=== PATIENT | female | born 1955 | race African-American/Black ===

== ENCOUNTER 2016-04-08 09:46 | Inpatient (IN) | payer MEDICARE, OTHER ==
[2016-04-08] VITALS (7 sets, daily range): BP systolic 116–157; BP diastolic 58–78
[~2016-04-08] VITALS: Ht 170 cm; Wt 103.0 kg
[~2016-04-08 09:46] MED LIST: ACTOS15 MG PO; ADVAIR 500/501 E1 INH; ASPIRIN81 M1 PO; BACTRIM DS 8001 TA1 PO; CLARITIN10 MG PO; COMBIVENT RESPIM4 GM INH; COMBIVENT1 ARO IH; Cimetidine300 MG PO; DELTASONE10 MG; DELTASONE10 MG PO; DOXYCYCLINE MO100 MG PO; GEODON20 MG PO; GEODON40 MG PO; GEODON60 MG PO; GLUCOPHAGE850 MG PO; IBUPROFEN600 MG PO; K-DUR 20MEQ20 MEQ PO; K-TAB20 MEQ PO; KOMBIGLYZE PO; LASIX40 MG PO; LEVAQUIN PO; LEVAQUIN500 M1 PO; LEXAPRO10 MG PO; LEXAPRO20 MG PO; MEDROL DOSEPAK4 MG PO; METFORMIN ER500 MG PO; METFORMIN500 MG PO; MOTRIN800 MG PO; MUCINEX DM 30/61 TAB PO; NEXIUM40 MG PO; ONGLYZA5 MG PO; OSCAL/D,OYSTER250 MG PO; OYSTER CALCIUM1 TA1 PO; PHENERGAN W/ DE30 ML PO; POLYTRIM 1000010 ML OPH; PREDNICOT10 MG PO; PREDNISONE20 M1 PO; PROAIR HFA0.09 MG/AC INH; PROCARDIA XL30 MG PO; PROCARDIA XL60 MG PO; SINGULAIR10 MG PO; TOPROL XL50 M1 PO; TOPROL XL50 MG PO; ULTRAM50 MG PO; VIBRAMYCIN100 MG PO; VITAMIN D50000 I2 PO; VITAMIN D50000 I3 PO; XANAX0.5 MG PO; ZITHROMAX250 MG PO
[2016-04-08] MEDS ORDERED: AMOXICILLIN500 M2 PO (09:57)
[2016-04-08 10:21] LABS: BASO % 0.5 % (0.0-1.0); EOS # 0.1 10*3/uL (0.0-0.4); EOS % 1.4 % (1.0-4.0); HEMATOCRIT 39.9 % (37.0-47.0); HEMOGLOBIN 13.3 g/dl (12.0-16.0); LYMPH # 1.7 10*3/uL (1.3-4.4); LYMPH % 24.9 % (27.0-41.0); MEAN CELL VOLUME 87.3 fl (81.0-99.0); MEAN CORPUSCULAR HGB 29.1 pg (27.0-31.0); MEAN CORPUSCULAR HGB CONC 33.3 g/dl (33.0-37.0); MEAN PLATELET VOLUME 10.4 fl (9.6-12.3); MONO # 0.4 10*3/uL (0.1-1.0); NEUT # 4.5 10*3/uL (2.3-7.9); PLATELET COUNT AUTOMATED 277 10*3/uL (130-400); RED BLOOD COUNT 4.57 10*6/uL (4.10-5.10); RED CELL DISTRI WIDTH 14.7 % (0-14.5); WHITE BLOOD COUNT 6.7 10*3/uL (4.8-10.8)
[2016-04-08 10:27] LABS: INTERNATIONAL NORM RATIO 0.9 (2.0-3.5); PROTHROMBIN TIME 9.8 SECONDS (9.0-12.4)
[2016-04-08 10:38] LABS: ALBUMIN 3.4 gm/dl (3.1-4.5); ALKALINE PHOSPHATASE 84 U/L (45-117); BILIRUBIN, TOTAL 0.6 mg/dl (0.2-1.0); BUN 9 mg/dl (7-24); CARBON DIOXIDE 24 mmol/L (21-32); CHLORIDE 110 mmol/L (98-107); EST GLOM FILT AFRICAN AMERICAN > 60 ml/min; GLUCOSE 177 mg/dL (65-99); MAGNESIUM 1.9 mg/dL (1.5-2.1); POTASSIUM 3.9 mmol/L (3.5-5.1); SGOT/AST 13 IU/L (3-35); SGPT/ALT 26 U/L (12-78); SODIUM 144 mmol/L (136-145); TOTAL PROTEIN 6.9 gm/dL (6.4-8.2)
[2016-04-08 10:45] LABS: TROPONIN I < 0.015 ng/ml (<0.5)
[2016-04-08] MEDS ORDERED: CHERATUSSIN AC480 ML PO (13:03)
[2016-04-08] MEDS ORDERED: IBU800 M1 PO (13:04)
[2016-04-08] MEDS ORDERED: KOMBIGLYZE PO (13:05)
[2016-04-08] MEDS ORDERED: RANITIDINE HYD300 MG PO (13:06)
[2016-04-08 16:48] LABS: CPK 41 U/L (26-192)
[2016-04-08 16:54] LABS: CKMB < 0.5 ng/ml (0.5-3.6); TROPONIN I < 0.015 ng/ml (<0.5)
[2016-04-08 22:25] LABS: CPK 51 U/L (26-192)
[2016-04-08 22:28] LABS: CKMB < 0.5 ng/ml (0.5-3.6); TROPONIN I < 0.015 ng/ml (<0.5)
[2016-04-09] VITALS: BP 123/61
[2016-04-09 06:10] LABS: BASO % 0.2 % (0.0-1.0); HEMATOCRIT 37.7 % (37.0-47.0); HEMOGLOBIN 12.5 g/dl (12.0-16.0); LYMPH % 10.9 % (27.0-41.0); MEAN CELL VOLUME 86.9 fl (81.0-99.0); MEAN CORPUSCULAR HGB 28.8 pg (27.0-31.0); MEAN CORPUSCULAR HGB CONC 33.2 g/dl (33.0-37.0); MEAN PLATELET VOLUME 10.5 fl (9.6-12.3); MONO # 0.7 10*3/uL (0.1-1.0); MONO % 7.2 % (3.0-9.0); NEUT # 7.8 10*3/uL (2.3-7.9); NEUT % 81.4 % (47.0-73.0); PLATELET COUNT AUTOMATED 271 10*3/uL (130-400); RED BLOOD COUNT 4.34 10*6/uL (4.10-5.10); RED CELL DISTRI WIDTH 14.6 % (0-14.5); WHITE BLOOD COUNT 9.5 10*3/uL (4.8-10.8)
[2016-04-09 06:33] LABS: BUN 16 mg/dl (7-24); CARBON DIOXIDE 24 mmol/L (21-32); CHLORIDE 107 mmol/L (98-107); CHOLESTEROL 159 mg/dL (<200); EST GLOM FILT AFRICAN AMERICAN > 60 ml/min; FREE T4 0.95 ng/dl (0.76-1.46); GLUCOSE 209 mg/dL (65-99); HDL CHOLESTEROL 57 mg/dl (40-60); LDL CHOLESTEROL 88 mg/dL (9-159); POTASSIUM 4.2 mmol/L (3.5-5.1); SODIUM 143 mmol/L (136-145); TRIGLYCERIDES 72 mg/dl (<150); VLDL CHOLESTEROL 14 mg/dL (6-40)
[2016-04-09 06:47] LABS: INTERNATIONAL NORM RATIO 0.9 (2.0-3.5)
[2016-04-09 07:11] LABS: HEMOGLOBIN A1c 6.9 % (4.8-5.6)
[2016-04-09 08:00] VITALS: BP 138/80
[2016-04-09 08:41] LABS: FOLIC ACID 6.46 ng/mL (>5.38)
[2016-04-09 12:00] VITALS: BP 132/54
== END 2016-04-09 14:50 | disposition home or self-care (01) | DRG 880 ==
LOC: ED 09:46 → EDHOLD 12:06 → 4E 12:06
PROVIDERS: Internal Medicine; Student in an Organized Health Care Education/Training Program
DX: F41.9 Anxiety disorder, unspecified (principal); I11.0 Hypertensive heart disease with heart failure; I50.32 Chronic diastolic (congestive) heart failure; E11.65 Type 2 diabetes mellitus with hyperglycemia; F32.9 Major depressive disorder, single episode, unspecified; J42 Unspecified chronic bronchitis; I25.10 Atherosclerotic heart disease of native coronary artery without angina pectoris; F07.81 Postconcussional syndrome; Z86.73 Personal history of transient ischemic attack (TIA), and cerebral infarction without residual deficits; Z90.49 Acquired absence of other specified parts of digestive tract; Z98.890 Other specified postprocedural states; Z82.49 Family history of ischemic heart disease and other diseases of the circulatory system; Z82.3 Family history of stroke; Z88.8 Allergy status to other drugs, medicaments and biological substances; Z79.82 Long term (current) use of aspirin; Z79.899 Other long term (current) drug therapy

== ENCOUNTER 2016-06-26 02:38 | Emergency (ER) | payer MEDICARE, OTHER ==
[~2016-06-26] VITALS: Ht 170.1 cm; Wt 101.2 kg
[~2016-06-26 02:38] MED LIST changes: +AMOXICILLIN500 M2 PO; +CHERATUSSIN AC480 ML PO; +IBU800 M1 PO; +RANITIDINE HYD300 MG PO
[2016-06-26 02:42] VITALS: BP 163/73
[2016-06-26] MEDS ORDERED: SPIRIVA -- 3018 MCG INH (02:47)
[2016-06-26] MEDS ORDERED: IMITREX50 MG PO (02:50)
[2016-06-26 03:35] LABS: BASO % 0.5 % (0.0-1.0); EOS # 0.2 10*3/uL (0.0-0.4); EOS % 2.3 % (1.0-4.0); HEMATOCRIT 38.3 % (37.0-47.0); LYMPH # 2.3 10*3/uL (1.3-4.4); LYMPH % 29.5 % (27.0-41.0); MEAN CELL VOLUME 83.4 fl (81.0-99.0); MEAN CORPUSCULAR HGB 28.3 pg (27.0-31.0); MEAN CORPUSCULAR HGB CONC 33.9 g/dl (33.0-37.0); MONO # 0.6 10*3/uL (0.1-1.0); MONO % 8.1 % (3.0-9.0); NEUT # 4.6 10*3/uL (2.3-7.9); NEUT % 59.2 % (47.0-73.0); PLATELET COUNT AUTOMATED 275 10*3/uL (130-400); RED BLOOD COUNT 4.59 10*6/uL (4.10-5.10); RED CELL DISTRI WIDTH 15.3 % (0-14.5); WHITE BLOOD COUNT 7.7 10*3/uL (4.8-10.8)
[2016-06-26 03:46] LABS: BUN 13 mg/dl (7-24); C-REACTIVE PROTEIN 1.31 MG/DL (0-0.3); CARBON DIOXIDE 27 mmol/L (21-32); CHLORIDE 108 mmol/L (98-107); EST GLOM FILT AFRICAN AMERICAN > 60 ml/min; GLUCOSE 135 mg/dL (65-99); POTASSIUM 3.5 mmol/L (3.5-5.1); SODIUM 142 mmol/L (136-145)
[2016-06-26] MEDS ORDERED: ZOFRAN ODT4 MG SL (04:15)
[2016-06-26] MEDS ORDERED: ULTRAM50 MG PO (04:15)
== END 2016-06-26 07:00 | disposition home or self-care (01) ==
LOC: ED 02:38
PROVIDERS: Emergency Medicine Emergency Medical Services
DX: G43.909 Migraine, unspecified, not intractable, without status migrainosus (principal); I25.10 Atherosclerotic heart disease of native coronary artery without angina pectoris; J44.9 Chronic obstructive pulmonary disease, unspecified; I10 Essential (primary) hypertension; E11.9 Type 2 diabetes mellitus without complications; F32.9 Major depressive disorder, single episode, unspecified; I99.8 Other disorder of circulatory system; Z86.73 Personal history of transient ischemic attack (TIA), and cerebral infarction without residual deficits; Z79.82 Long term (current) use of aspirin; Z88.8 Allergy status to other drugs, medicaments and biological substances; Z79.899 Other long term (current) drug therapy

== ENCOUNTER 2016-07-26 15:56 | Inpatient (IN) | payer MEDICARE, OTHER ==
[~2016-07-26] VITALS: Ht 170.2 cm; Wt 101.6 kg
--- NOTE | ~2016-07-26 | EKG ---
[place], [place] ELECTROCARDIOGRAM REPORT NAME: LEANDRO TITUS UNIT #: [id number] ROOM: 405 DOCTOR: JANETT SAHA MD BIRTHDATE: [birth year] DOS: 07/26/2016 TIME: 1630. FINDINGS: Sinus rhythm at rate of 64. Nonspecific T wave flattening. Abnormal electrocardiogram. JANETT SAHA MD CM:EKGRPT:ELECTROCARDIOGRAM REPORT [id number] JANETT SAHA MD
[~2016-07-26 15:56] MED LIST changes: +IMITREX50 MG PO; +SPIRIVA -- 3018 MCG INH; +ZOFRAN ODT4 MG SL
[2016-07-26 16:19] VITALS: BP 140/64
[2016-07-26] MEDS ORDERED: PROPRANOLOL HYD80 MG PO (16:26)
[2016-07-26 16:39] LABS: BASO % 0.5 % (0.0-1.0); EOS # 0.1 10*3/uL (0.0-0.4); HEMATOCRIT 40.2 % (37.0-47.0); HEMOGLOBIN 13.4 g/dl (12.0-16.0); LYMPH # 1.6 10*3/uL (1.3-4.4); LYMPH % 25.6 % (27.0-41.0); MEAN CELL VOLUME 84.5 fl (81.0-99.0); MEAN CORPUSCULAR HGB 28.2 pg (27.0-31.0); MEAN CORPUSCULAR HGB CONC 33.3 g/dl (33.0-37.0); MEAN PLATELET VOLUME 10.7 fl (9.6-12.3); MONO # 0.4 10*3/uL (0.1-1.0); MONO % 6.4 % (3.0-9.0); NEUT # 4.2 10*3/uL (2.3-7.9); NEUT % 65.2 % (47.0-73.0); PLATELET COUNT AUTOMATED 284 10*3/uL (130-400); RED BLOOD COUNT 4.76 10*6/uL (4.10-5.10); RED CELL DISTRI WIDTH 15.8 % (0-14.5); WHITE BLOOD COUNT 6.4 10*3/uL (4.8-10.8)
[2016-07-26 16:50] LABS: INTERNATIONAL NORM RATIO 0.9 (2.0-3.5); PROTHROMBIN TIME 9.9 SECONDS (9.0-12.4)
[2016-07-26 16:55] LABS: ALBUMIN 3.3 gm/dl (3.1-4.5); ALKALINE PHOSPHATASE 89 U/L (45-117); BUN 6 mg/dl (7-24); CARBON DIOXIDE 27 mmol/L (21-32); CHLORIDE 109 mmol/L (98-107); EST GLOM FILT AFRICAN AMERICAN > 60 ml/min; GLUCOSE 148 mg/dL (65-99); MAGNESIUM 2.1 mg/dL (1.5-2.1); POTASSIUM 3.6 mmol/L (3.5-5.1); SGOT/AST 17 IU/L (3-35); SGPT/ALT 19 U/L (12-78); SODIUM 145 mmol/L (136-145); TOTAL PROTEIN 6.9 gm/dL (6.4-8.2)
[2016-07-26 16:57] LABS: TROPONIN I < 0.015 ng/ml (<0.045)
[2016-07-26 19:26] VITALS: BP 124/59
[2016-07-26 19:43] VITALS: BP 125/76
[2016-07-26 20:00] VITALS: BP 125/76
[2016-07-27] VITALS: BP 104/50
[2016-07-27 00:48] LABS: CPK 43 U/L (26-192)
[2016-07-27 00:49] LABS: CKMB < 0.5 ng/ml (0.5-3.6); TROPONIN I < 0.015 ng/ml (<0.045)
[2016-07-27 04:30] VITALS: BP 105/51
[2016-07-27 06:23] LABS: BASO % 0.3 % (0.0-1.0); EOS # 0.2 10*3/uL (0.0-0.4); EOS % 2.6 % (1.0-4.0); HEMATOCRIT 35.4 % (37.0-47.0); HEMOGLOBIN 11.7 g/dl (12.0-16.0); LYMPH # 1.7 10*3/uL (1.3-4.4); LYMPH % 27.7 % (27.0-41.0); MEAN CELL VOLUME 86.3 fl (81.0-99.0); MEAN CORPUSCULAR HGB 28.5 pg (27.0-31.0); MEAN CORPUSCULAR HGB CONC 33.1 g/dl (33.0-37.0); MEAN PLATELET VOLUME 10.4 fl (9.6-12.3); MONO # 0.5 10*3/uL (0.1-1.0); MONO % 7.8 % (3.0-9.0); NEUT # 3.8 10*3/uL (2.3-7.9); NEUT % 61.3 % (47.0-73.0); PLATELET COUNT AUTOMATED 244 10*3/uL (130-400); RED CELL DISTRI WIDTH 15.9 % (0-14.5); WHITE BLOOD COUNT 6.1 10*3/uL (4.8-10.8)
[2016-07-27 06:38] LABS: CPK 36 U/L (26-192)
[2016-07-27 06:40] LABS: CKMB < 0.5 ng/ml (0.5-3.6); TROPONIN I < 0.015 ng/ml (<0.045)
[2016-07-27 06:55] LABS: INTERNATIONAL NORM RATIO 0.9 (2.0-3.5); PROTHROMBIN TIME 9.5 SECONDS (9.0-12.4)
[2016-07-27 07:07] LABS: ALBUMIN 2.9 gm/dl (3.1-4.5); BILIRUBIN, TOTAL 0.8 mg/dl (0.2-1.0); FREE T4 0.96 ng/dl (0.76-1.46); MAGNESIUM 1.9 mg/dL (1.5-2.1); PHOSPHOROUS 4.4 mg/dL (2.5-4.9); POTASSIUM 3.5 mmol/L (3.5-5.1)
[2016-07-27 07:12] LABS: THYROID STIM HORMONE (HS) 1.22 uIU/ml (0.358-4.75)
[2016-07-27 07:26] LABS: HEMOGLOBIN A1c 7.1 % (4.8-5.6)
[2016-07-27 08:00] VITALS: BP 110/52
[2016-07-27 09:17] LABS: FOLIC ACID 6.03 ng/mL (>5.38)
[2016-07-27 12:00] VITALS: BP 127/50
[2016-07-27 16:00] VITALS: BP 127/64
[2016-07-27 20:00] VITALS: BP 122/43
[2016-07-28] VITALS: BP 145/67
[2016-07-28 04:19] LABS: BILIRUBIN NEGATIVE (NEGATIVE); BLOOD NEGATIVE (NEGATIVE); CLARITY CLEAR (CLEAR); COLOR YELLOW (YELLOW); GLUCOSE NEGATIVE (NEGATIVE); KETONE NEGATIVE (NEGATIVE); LEUKO ESTERASE NEGATIVE (NEGATIVE); NITRITE NEGATIVE (NEGATIVE); PH 5.5 (5.0-9.0); PROTEIN NEGATIVE (NEGATIVE); UROBILINOGEN 0.2 E.U./dl (0.2-1.0)
[2016-07-28 04:29] LABS: EPITHELIAL CELLS 20-25; URINE REFLEX COMMENT NO (NO); WBC 0-2 wbc/hpf (0-5)
[2016-07-28 08:00] VITALS: BP 128/50
[2016-07-28] MEDS ORDERED: B12,B-12,B 12500 MC1 PO (11:13)
[2016-07-28] MEDS ORDERED: D-1000 185 MG-11 TAB PO (11:13)
== END 2016-07-28 12:09 | disposition home or self-care (01) | DRG 391 ==
LOC: ED 15:56 → 4E 17:55 → EDHOLD 17:55 → 4E 18:52
PROVIDERS: Emergency Medicine; Hospitalist; Internal Medicine
DX: K21.9 Gastro-esophageal reflux disease without esophagitis (principal); N17.0 Acute kidney failure with tubular necrosis; J18.9 Pneumonia, unspecified organism; I11.0 Hypertensive heart disease with heart failure; E44.0 Moderate protein-calorie malnutrition; I50.32 Chronic diastolic (congestive) heart failure; E87.8 Other disorders of electrolyte and fluid balance, not elsewhere classified; F33.9 Major depressive disorder, recurrent, unspecified; I25.10 Atherosclerotic heart disease of native coronary artery without angina pectoris; G51.0 Bell's palsy; G43.009 Migraine without aura, not intractable, without status migrainosus; E11.65 Type 2 diabetes mellitus with hyperglycemia; J43.9 Emphysema, unspecified; K44.9 Diaphragmatic hernia without obstruction or gangrene; E66.9 Obesity, unspecified; E55.9 Vitamin D deficiency, unspecified; E53.8 Deficiency of other specified B group vitamins; F41.9 Anxiety disorder, unspecified; Z86.73 Personal history of transient ischemic attack (TIA), and cerebral infarction without residual deficits; Z90.710 Acquired absence of both cervix and uterus; Z90.49 Acquired absence of other specified parts of digestive tract; Z82.3 Family history of stroke; Z82.49 Family history of ischemic heart disease and other diseases of the circulatory system; Z88.8 Allergy status to other drugs, medicaments and biological substances; Z79.82 Long term (current) use of aspirin; Z79.1 Long term (current) use of non-steroidal anti-inflammatories (NSAID); Z79.899 Other long term (current) drug therapy; Z68.35 Body mass index [BMI] 35.0-35.9, adult; R07.89 Other chest pain

== ENCOUNTER → 2016-12-14 | Outpatient (CLI) | payer MEDICARE, OTHER ==
[~2016-12-14] MED LIST changes: +B12,B-12,B 12500 MC1 PO; +D-1000 185 MG-11 TAB PO; +PROPRANOLOL HYD80 MG PO
== END | disposition home or self-care (01) ==
LOC: RAD 12:21
DX: J43.9 Emphysema, unspecified (principal); I10 Essential (primary) hypertension; E11.9 Type 2 diabetes mellitus without complications; Z87.09 Personal history of other diseases of the respiratory system

== ENCOUNTER 2016-12-21 13:11 | Inpatient (IN) | payer MEDICARE, OTHER ==
[~2016-12-21] VITALS: Ht 170.1 cm; Wt 99.3 kg
--- NOTE | ~2016-12-21 | CON ---
[place], [place] REPORT OF CONSULTATION NAME: LEANDRO TITUS UNIT #: [id number] ROOM: 511 DOCTOR: SHIRLEY KOTHARI MD BIRTHDATE: [birth year] DOS: 12/22/2016 HISTORY OF PRESENT ILLNESS: A 61-year-old female who is well known to me. Apparently came in and had a heart catheterization in the past, which was unremarkable. The patient came in with substernal chest heaviness and tightness. The tightness is not associated with any other symptoms. In the Emergency Room, the patient had tightness which has slowly subsided. She was given nitroglycerin. The patient denies any pain today, ruled out for myocardial infarction. No acute EKG changes, suggestion of myocardial injury or infarction. PAST MEDICAL HISTORY: Significant for history of diastolic heart failure, COPD, depression, diabetes, hypertension, hyperlipidemia, morbid obesity, history of TIA. SURGICAL HISTORY: Breast biopsy, hysterectomy, tonsillectomy and appendectomy. SOCIAL HISTORY: Denies any alcohol abuse, not a smoker. FAMILY HISTORY: Positive for coronary artery disease. HOME MEDICATIONS: Includes metoprolol, nifedipine, propranolol. REVIEW OF SYSTEMS: CONSTITUTIONAL: No fever, no chills. HEENT: No visual disturbances or hearing problems. CARDIOVASCULAR: As per HPI. RESPIRATORY: Does have shortness of breath. ABDOMEN: Obese. GENITOURINARY: No dysuria or hematuria. NEUROLOGIC: Intact. PSYCHIATRIC: Intact. ENDOCRINE: Intact. PHYSICAL EXAMINATION: VITAL SIGNS: Blood pressure today is 120/80, the patient is in sinus rhythm. HEENT: Unremarkable. NECK: Supple, no JVD. LUNGS: Clear. HEART: Sounds are regular. ABDOMEN: Soft, nontender. NEUROLOGICAL: Stable. LABORATORY DATA: Sodium 141, potassium 3.6, BUN and creatinine is 6 and 0.72. Electrolytes within normal limits. Troponin is negative. INR is normal. Hemoglobin and hematocrit within normal limits. EKG sinus with nonspecific ST-T changes. IMPRESSION: The patient with coronary artery disease, diabetes, hypertension, hyperlipidemia, history of diastolic heart failure. [place], [place] REPORT OF CONSULTATION NAME: LEANDRO TITUS UNIT #: [id number] ROOM: 511 DOCTOR: SHIRLEY KOTHARI MD BIRTHDATE: [birth year] RECOMMENDATIONS: Continue the present care: Monitor the heart rate and blood pressures. Serial enzymes have been done. We will review the echocardiogram. We will schedule a stress test as an outpatient and I will followup. SHIRLEY KOTHARI MD CM:CONSTR:REPORT OF CONSULTATION 0730 12/22/16 0901 interface
[2016-12-21 13:25] VITALS: BP 138/67
--- NOTE | 2016-12-21 13:27 | NUR ---
PT PLACED ON 2L NC FOR COMFORT , C/O CHESTPAIN 09/24. POX 94% RA. WILL MONITOR.
[2016-12-21 13:33] LABS: BASO % 0.6 % (0.0-1.0); EOS # 0.1 10*3/uL (0.0-0.4); EOS % 2.3 % (1.0-4.0); HEMATOCRIT 35.8 % (37.0-47.0); HEMOGLOBIN 11.7 g/dl (12.0-16.0); LYMPH # 1.5 10*3/uL (1.3-4.4); LYMPH % 29.9 % (27.0-41.0); MEAN CELL VOLUME 85.6 fl (81.0-99.0); MEAN CORPUSCULAR HGB CONC 32.7 g/dl (33.0-37.0); MEAN PLATELET VOLUME 10.4 fl (9.6-12.3); MONO # 0.4 10*3/uL (0.1-1.0); MONO % 7.8 % (3.0-9.0); NEUT # 2.9 10*3/uL (2.3-7.9); NEUT % 59.2 % (47.0-73.0); PLATELET COUNT AUTOMATED 233 10*3/uL (130-400); RED BLOOD COUNT 4.18 10*6/uL (4.10-5.10); RED CELL DISTRI WIDTH 14.9 % (0-14.5); WHITE BLOOD COUNT 4.9 10*3/uL (4.8-10.8)
[2016-12-21 13:42] LABS: ACT PARTIAL THROMBO TIME 27.9 SECONDS (20.8-31.5); INTERNATIONAL NORM RATIO 0.9 (2.0-3.5)
[2016-12-21 13:47] LABS: ALBUMIN 3.3 gm/dl (3.1-4.5); ALKALINE PHOSPHATASE 76 U/L (45-117); BUN 6 mg/dl (7-24); CHLORIDE 109 mmol/L (98-107); CREATININE 0.72 mg/dL (0.55-1.02); LIPASE 142 U/L (73-393); POTASSIUM 3.6 mmol/L (3.5-5.1); SGOT/AST 12 IU/L (3-35); SGPT/ALT 16 U/L (12-78); SODIUM 141 mmol/L (136-145); TOTAL PROTEIN 6.8 gm/dL (6.4-8.2)
[2016-12-21 13:52] LABS: TROPONIN I < 0.015 ng/ml (<0.045)
[2016-12-21 14:45] VITALS: BP 132/70
[2016-12-21 15:10] VITALS: BP 128/60
--- NOTE | 2016-12-21 15:18 | NUR ---
Time: 1517 A 62 year old female admitted to 5E under services of DAYA SAEED DO. Pt. arrived via stretcher from ER. Chief complaint: chest pain. tele applied pt states mild chest discomfort left sided at this time, improved from arrival to ER. PARMJIT NATHAN
--- NOTE | 2016-12-21 15:30 | NUR ---
SPOKE TO DR. KOTHARI AND HE WOULD LIKE FOR DR. BESS TO BE NOTIFIED OF NEW CONSULT TO SEE
--- NOTE | 2016-12-21 15:34 | NUR ---
SPOKE TO DR. BESS, HE HAS ALREADY ROUNDED AT THE HOSPITAL AND IS NOW GONE. WILL CALL DR. KOTHARI BACK AND NOTIFY HIM.
--- NOTE | 2016-12-21 15:37 | NUR ---
dr. martinez will see patient tomorrow
--- NOTE | 2016-12-21 16:00 | NUR ---
PT DOES WANT FLU SHOT PRIOR TO DISHCARGE HOWEVER WISHES TO WAIT UNTIL AT LEAST TOMORROW "WHEN IM FEELING BETTER"
[2016-12-21] MEDS ORDERED: TOPAMAX50 MG PO (16:21)
[2016-12-21] MEDS ORDERED: TOPROL XL50 M1 PO (16:24)
[2016-12-21] MEDS ORDERED: RANITIDINE HCL300 M2 PO (16:25)
--- NOTE | 2016-12-21 16:27 | NUR ---
HOME MEDICAIONS UPDATED FROM PATIENTS PHARMACY LIST AND PATIENT RECALL
--- NOTE | 2016-12-21 19:30 | NUR ---
ASSUMED CARE OF PT AT THIS TIME, RESPS EASY AND NONLABORED WITH NO S/S OF DISTRESS CALL LIGHT WITH IN REACH
[2016-12-21 20:00] VITALS: BP 114/54
[2016-12-22] VITALS: BP 125/50
--- NOTE | 2016-12-22 02:00 | NUR ---
PT RESTING IN BED WITH EYES CLOSED RESPS EASY AND NONLABORED WITH NO S/S OF DISTRESS CALL LIGHT WITH IN REACH
[2016-12-22 06:13] LABS: BASO % 0.5 % (0.0-1.0); EOS # 0.1 10*3/uL (0.0-0.4); EOS % 2.3 % (1.0-4.0); HEMATOCRIT 36.5 % (37.0-47.0); LYMPH # 1.7 10*3/uL (1.3-4.4); LYMPH % 30.7 % (27.0-41.0); MEAN CELL VOLUME 86.1 fl (81.0-99.0); MEAN CORPUSCULAR HGB 28.3 pg (27.0-31.0); MEAN CORPUSCULAR HGB CONC 32.9 g/dl (33.0-37.0); MEAN PLATELET VOLUME 10.1 fl (9.6-12.3); MONO # 0.5 10*3/uL (0.1-1.0); MONO % 8.3 % (3.0-9.0); NEUT # 3.2 10*3/uL (2.3-7.9); PLATELET COUNT AUTOMATED 223 10*3/uL (130-400); RED BLOOD COUNT 4.24 10*6/uL (4.10-5.10); RED CELL DISTRI WIDTH 15.2 % (0-14.5); WHITE BLOOD COUNT 5.5 10*3/uL (4.8-10.8)
[2016-12-22 06:39] LABS: ALBUMIN 3.1 gm/dl (3.1-4.5); ALKALINE PHOSPHATASE 70 U/L (45-117); BUN 8 mg/dl (7-24); CHLORIDE 113 mmol/L (98-107); CHOLESTEROL 166 mg/dL (<200); FREE T4 0.99 ng/dl (0.76-1.46); HDL CHOLESTEROL 51 mg/dl (40-60); LDL CHOLESTEROL 98 mg/dL (9-159); PHOSPHOROUS 3.2 mg/dL (2.5-4.9); POTASSIUM 3.7 mmol/L (3.5-5.1); SGOT/AST 12 IU/L (3-35); SGPT/ALT 15 U/L (12-78); SODIUM 144 mmol/L (136-145); TOTAL PROTEIN 6.4 gm/dL (6.4-8.2); TRIGLYCERIDES 84 mg/dl (<150); VLDL CHOLESTEROL 17 mg/dL (6-40)
--- NOTE | 2016-12-22 07:30 | NUR ---
DR. KOTHARI IN TO SEE PATIENT, FROM HIS STANDPOINT PATIENT CAN BE D/C HOME TODAY AND COME BACK IN SATURDAY FOR AN OUTPATIENT STRESS TEST.
[2016-12-22 08:00] VITALS: BP 122/48
[2016-12-22 09:12] LABS: VITAMIN D, 25-HYDROXY 20.2 ng/mL (30-100)
[2016-12-22] MEDS ORDERED: VITAMIN D31000 UNI1 PO (10:45)
--- NOTE | 2016-12-22 11:20 | NUR ---
PT DOES WANT FLU SHOT TODAY PRIOR TO DISCHARGE TODAY
[2016-12-22 12:00] VITALS: BP 108/50
--- NOTE | 2016-12-22 12:55 | NUR ---
FLU VACCINE GIVEN, INFORMATION SHEET GIVEN. PT UNDERSTANDS, NO QUESTIONS. GIVEN IN RIGHT DELTOID
--- NOTE | 2016-12-22 14:35 | NUR ---
Discharge instructions reviewed with patient. Patient receptive and verbalizes understanding. Follow-up care understood. Written instructions given to patient. iv removed, tele off. pt without questions at this time PARMJIT NATHAN
--- NOTE | 2016-12-24 09:30 | NUR ---
BALA CALLED AT DR. KOTHARI'S OFFICE AND NOTIFIED OF NEED TO ADD FOR STRESS TEST TOMORROW. NO PREAUTH NEEDED. ADDED TO SCHEDULE FOR 12/25.
== END 2016-12-22 14:35 | disposition home or self-care (01) | DRG 313 ==
LOC: ED 13:11 → EDHOLD 14:15 → 5E 14:40
PROVIDERS: Emergency Medicine; Registered Nurse; ADMIT Internal Medicine
DX: R07.89 Other chest pain (principal); I25.10 Atherosclerotic heart disease of native coronary artery without angina pectoris; I11.0 Hypertensive heart disease with heart failure; E44.0 Moderate protein-calorie malnutrition; E11.65 Type 2 diabetes mellitus with hyperglycemia; I50.9 Heart failure, unspecified; F32.9 Major depressive disorder, single episode, unspecified; G51.0 Bell's palsy; E66.9 Obesity, unspecified; J44.9 Chronic obstructive pulmonary disease, unspecified; E78.5 Hyperlipidemia, unspecified; G43.909 Migraine, unspecified, not intractable, without status migrainosus; Z68.34 Body mass index [BMI] 34.0-34.9, adult; Z86.73 Personal history of transient ischemic attack (TIA), and cerebral infarction without residual deficits; Z90.49 Acquired absence of other specified parts of digestive tract; Z90.710 Acquired absence of both cervix and uterus; Z82.49 Family history of ischemic heart disease and other diseases of the circulatory system; Z82.3 Family history of stroke; Z88.8 Allergy status to other drugs, medicaments and biological substances; Z79.01 Long term (current) use of anticoagulants; Z79.82 Long term (current) use of aspirin; Z79.899 Other long term (current) drug therapy

== ENCOUNTER → 2016-12-25 | Outpatient (CLI) | payer MEDICARE, OTHER ==
[~2016-12-25] MED LIST changes: +RANITIDINE HCL300 M2 PO; +TOPAMAX50 MG PO; +VITAMIN D31000 UNI1 PO
--- NOTE | ~2016-12-25 | ST ---
[place], [place] EXERCISE STRESS TEST REPORT [id number] UNIT #: [id number] ROOM: DOCTOR: SHIRLEY KOTHARI MD BIRTHDATE: [birth year] DOS: 12/25/2016 LEXISCAN STRESS TEST Per protocol, baseline cardiogram is sinus rhythm with poor R-wave progression with nonspecific ST-T changes. 0.4 mg Lexiscan, duration of 10 seconds. With Lexiscan, no new EKG changes. No chest discomfort. Blood pressure and heart rate response was normal. Nuclear images will be reported separately. SHIRLEY KOTHARI MD CM:STRESS:EXERCISE STRESS TEST REPORT [id number] SHIRLEY KOTHARI MD
== END | disposition home or self-care (01) ==
LOC: CARD 04:50
DX: R07.89 Other chest pain (principal)

== ENCOUNTER 2017-02-12 13:36 | Inpatient (IN) | payer MEDICARE, OTHER ==
[~2017-02-12] VITALS: Ht 170.2 cm; Wt 99.6 kg
[2017-02-12 13:36] VITALS: BP 143/65
[2017-02-12 14:27] LABS: BASO % 0.4 % (0.0-1.0); EOS # 0.1 10*3/uL (0.0-0.4); EOS % 2.5 % (1.0-4.0); HEMATOCRIT 38.1 % (37.0-47.0); HEMOGLOBIN 12.7 g/dl (12.0-16.0); LYMPH # 1.4 10*3/uL (1.3-4.4); LYMPH % 25.1 % (27.0-41.0); MEAN CELL VOLUME 85.6 fl (81.0-99.0); MEAN CORPUSCULAR HGB 28.5 pg (27.0-31.0); MEAN CORPUSCULAR HGB CONC 33.3 g/dl (33.0-37.0); MEAN PLATELET VOLUME 9.9 fl (9.6-12.3); MONO # 0.4 10*3/uL (0.1-1.0); MONO % 7.8 % (3.0-9.0); NEUT # 3.5 10*3/uL (2.3-7.9); PLATELET COUNT AUTOMATED 267 10*3/uL (130-400); RED BLOOD COUNT 4.45 10*6/uL (4.10-5.10); RED CELL DISTRI WIDTH 14.6 % (0-14.5); WHITE BLOOD COUNT 5.5 10*3/uL (4.8-10.8)
[2017-02-12 14:44] LABS: ALBUMIN 3.3 gm/dl (3.1-4.5); ALKALINE PHOSPHATASE 91 U/L (45-117); BUN 11 mg/dl (7-24); CHLORIDE 111 mmol/L (98-107); CREATININE 0.66 mg/dL (0.55-1.02); POTASSIUM 4.1 mmol/L (3.5-5.1); SGOT/AST 12 IU/L (3-35); SGPT/ALT 17 U/L (12-78); SODIUM 143 mmol/L (136-145)
[2017-02-12 14:46] LABS: TROPONIN I < 0.015 ng/ml (<0.045)
[2017-02-12 15:37] VITALS: BP 155/78
[2017-02-12 16:12] VITALS: BP 148/75
[2017-02-12 19:57] VITALS: BP 154/71
[2017-02-12 20:15] VITALS: BP 114/56
--- NOTE | 2017-02-12 20:15 | NUR ---
A 61, admitted to , under the services of NICHOLAS Lemus DO with a diagnosis of CHEST PAIN. Chief complaint is CHEST PAIN. Patient arrived via ambulance from ER. Monitor applied. Initial assessment completed. Vital signs taken and recorded. NICHOLAS LEMUS DO notified of admission to the unit. Orders received. See assessment for past medical history, medications and allergies. Patient and/or family oriented to unit. [facility]. Clothing/patient valuable form completed. JEANCARLOS DAVIS
[2017-02-12] MEDS ORDERED: KOMBIGLYZE XR1 EACH PO (21:08)
[2017-02-13] VITALS: BP 112/58
--- NOTE | 2017-02-13 02:34 | NUR ---
24HR CHART CHECK COMPLETED.
--- NOTE | 2017-02-13 05:06 | NUR ---
PT IN BED, EYES CLOSED AND EASILY AROUSED. PT IN NO APPARENT DISTRESS AT THIS TIME AND VOICES NO C/O. TOLERATED MEDS WELL. WILL CONTINUE TO MONITOR.
[2017-02-13 06:28] LABS: BASO % 0.5 % (0.0-1.0); EOS # 0.1 10*3/uL (0.0-0.4); EOS % 1.1 % (1.0-4.0); HEMOGLOBIN 12.8 g/dl (12.0-16.0); LYMPH # 1.5 10*3/uL (1.3-4.4); LYMPH % 24.4 % (27.0-41.0); MEAN CELL VOLUME 87.6 fl (81.0-99.0); MEAN CORPUSCULAR HGB 28.8 pg (27.0-31.0); MEAN CORPUSCULAR HGB CONC 32.8 g/dl (33.0-37.0); MEAN PLATELET VOLUME 10.5 fl (9.6-12.3); MONO # 0.5 10*3/uL (0.1-1.0); MONO % 7.8 % (3.0-9.0); NEUT # 4.1 10*3/uL (2.3-7.9); NEUT % 65.9 % (47.0-73.0); PLATELET COUNT AUTOMATED 251 10*3/uL (130-400); RED BLOOD COUNT 4.45 10*6/uL (4.10-5.10); RED CELL DISTRI WIDTH 15.1 % (0-14.5); WHITE BLOOD COUNT 6.3 10*3/uL (4.8-10.8)
[2017-02-13 06:59] LABS: ALBUMIN 3.3 gm/dl (3.1-4.5); BUN 17 mg/dl (7-24); CHLORIDE 108 mmol/L (98-107); CREATININE 0.86 mg/dL (0.55-1.02); POTASSIUM 3.5 mmol/L (3.5-5.1); SGOT/AST 11 IU/L (3-35); SGPT/ALT 17 U/L (12-78); SODIUM 141 mmol/L (136-145); TOTAL PROTEIN 6.7 gm/dL (6.4-8.2)
--- NOTE | 2017-02-13 07:02 | NUR ---
'S ANSWERING SERVCE NOTIFIED OF CONSULT. AWAITING CALL BACK.
[2017-02-13 07:06] LABS: ALKALINE PHOSPHATASE 87 U/L (45-117); FREE T4 1.06 ng/dl (0.76-1.46)
[2017-02-13 07:11] LABS: ACT PARTIAL THROMBO TIME 26.7 SECONDS (20.8-31.5); INTERNATIONAL NORM RATIO 0.9 (2.0-3.5)
[2017-02-13 07:21] LABS: VITAMIN D, 25-HYDROXY 18.8 ng/mL (30-100)
--- NOTE | 2017-02-13 07:49 | NUR ---
DR KOTHARI CALLED BACK REGARDING CONSULT. UPDATED HIM ON PT, PT WAS HERE LAST MONTH AND HAD NORMAL STRESS, AND HAD ECHO DONE AT THAT TIME. STATES TO PUT RESULTS ON CHART, NO NEW ORDERS.
[2017-02-13 08:00] VITALS: BP 102/79
--- NOTE | 2017-02-13 08:00 | NUR ---
PT RESTING IN BED, NO DISTRESS NOTED. LUNG SOUNDS DIMINISHED, BUT CLEAR. PT DENIES ANY CHEST PAIN, DOES STATE SOME INTERMITTENT CHEST PRESSURE, PT DENIES ANY SOB, ON ROOM AIR. HRR, NO EDEMA NOTED. BS X4 QUADS, PT DENIES N/V/D. PT DENIES ANY PAIN. CALL LIGHT WITHIN REACH.
--- NOTE | 2017-02-13 08:13 | NUR ---
PT WAS ALERT AND ORIENTED X3. EASILY AROUSED. PT GOT UP TO USE RESTROOM AND WASHED SELF. PT ORDERED BREAKFAST AND SAID SHE HAD NO COMPLAINTS AT THIS TIME. CHETAN SPAULDING [facility]
--- NOTE | 2017-02-13 09:22 | NUR ---
Medical Writer in to talk to patient. Patient states she lives at home alone but has local presybeterian friends and neighbors that check on her routinely. There are 10-12 steps in the home. Physician: Romeo Espinal Pharmacy: [facility] Home health services: no Patient's level of ADLs: INDEPENDENT Patient has working utilities: yes DME: nebulizer Follow-up physician's appointment after d/c: will be made by hospitalist nurse director upon discharge Does patient want to access PORTAL?: no Discharge plan is to return home. Patient lives at home alone. She does have local [place] friends and neighbors that check on her routinely. She is independent in ADLs and ambulation. She will be returning home and denies any home needs. VOLODYMYR TAY
[2017-02-13 09:25] VITALS: BP 128/64
--- NOTE | 2017-02-13 09:53 | NUR ---
PTS BP WAS 128/64 BEFORE 10OO MEDS WERE GIVEN. MITCH HOSE WAS APPLIED. PT IS SLEEPING IN BED CHETAN COWANNJDRCElida
[2017-02-13 12:00] VITALS: BP 117/61
--- NOTE | 2017-02-13 12:07 | NUR ---
PT WAS ON THE PHONE WITH A LOVED ONE. VITALS ARE NORMAL. LUNCH WAS ORDERED AND PT WAS ASSISTED TO RESTROOM. INTAKE AND OUTPUT TO BE NOTED. PT IS RESTING IN BED CHETAN BORJAElida
--- NOTE | 2017-02-13 13:55 | NUR ---
PT IN BED. HAD LUNCH. INTAKE AND OUTPUT NOTED. REPORT GIVEN TO ULYSSES SPAULDING [facility]
--- NOTE | 2017-02-13 14:00 | NUR ---
PT SLEEPING AT THIS TIME, NO DISTRESS NOTED. CALL LIGHT WITHIN REACH.
--- NOTE | 2017-02-13 15:49 | NUR ---
Discharge instructions reviewed with patient/family. Patient receptive and verbalizes understanding. Follow-up care arranged. Written instructions given to patient/family. IV site and secured entrance monitor removed. Pt trasnported to lobby via wheelchair. ULYSSES SAHU
== END 2017-02-13 15:45 | disposition home or self-care (01) | DRG 292 ==
LOC: ED 13:36 → EDHOLD 18:52 → 4E 18:52
PROVIDERS: Emergency Medicine; Internal Medicine; ADMIT Emergency Medicine
DX: I11.0 Hypertensive heart disease with heart failure (principal); E44.1 Mild protein-calorie malnutrition; E11.8 Type 2 diabetes mellitus with unspecified complications; E87.8 Other disorders of electrolyte and fluid balance, not elsewhere classified; I25.10 Atherosclerotic heart disease of native coronary artery without angina pectoris; I50.33 Acute on chronic diastolic (congestive) heart failure; J44.9 Chronic obstructive pulmonary disease, unspecified; G43.909 Migraine, unspecified, not intractable, without status migrainosus; E66.9 Obesity, unspecified; E78.5 Hyperlipidemia, unspecified; F31.9 Bipolar disorder, unspecified; F41.9 Anxiety disorder, unspecified; K21.9 Gastro-esophageal reflux disease without esophagitis; G51.0 Bell's palsy; R07.89 Other chest pain; R09.1 Pleurisy; E55.9 Vitamin D deficiency, unspecified; E53.8 Deficiency of other specified B group vitamins; Z90.710 Acquired absence of both cervix and uterus; Z82.49 Family history of ischemic heart disease and other diseases of the circulatory system; Z83.3 Family history of diabetes mellitus; Z88.8 Allergy status to other drugs, medicaments and biological substances; Z79.82 Long term (current) use of aspirin; Z79.899 Other long term (current) drug therapy; Z82.3 Family history of stroke; Z84.1 Family history of disorders of kidney and ureter; Z68.34 Body mass index [BMI] 34.0-34.9, adult; Z87.19 Personal history of other diseases of the digestive system

== ENCOUNTER 2017-03-20 12:12 | Emergency (ER) | payer MEDICARE, OTHER ==
[~2017-03-20] VITALS: Wt 100.2 kg
[~2017-03-20 12:12] MED LIST changes: +KOMBIGLYZE XR1 EACH PO
[2017-03-20] MEDS ORDERED: MONTELUKAST SOD10 MG PO (12:34)
[2017-03-20] MEDS ORDERED: TRAMADOL HCL50 MG PO (12:37)
[2017-03-20] MEDS ORDERED: POTASSIUM CHLO20 ME4 PO (12:39)
[2017-03-20] MEDS ORDERED: ASPIRIN81 M1 PO (12:40)
[2017-03-20] MEDS ORDERED: ZANTAC 300300 MG PO (12:42)
[2017-03-20 12:51] VITALS: BP 109/48
[2017-03-20 13:00] LABS: BASO % 0.3 % (0.0-1.0); EOS # 0.1 10*3/uL (0.0-0.4); EOS % 1.9 % (1.0-4.0); HEMATOCRIT 35.3 % (37.0-47.0); HEMOGLOBIN 11.8 g/dl (12.0-16.0); LYMPH # 1.4 10*3/uL (1.3-4.4); LYMPH % 22.3 % (27.0-41.0); MEAN CELL VOLUME 86.7 fl (81.0-99.0); MEAN CORPUSCULAR HGB CONC 33.4 g/dl (33.0-37.0); MONO # 0.5 10*3/uL (0.1-1.0); MONO % 8.6 % (3.0-9.0); NEUT # 4.2 10*3/uL (2.3-7.9); NEUT % 66.6 % (47.0-73.0); PLATELET COUNT AUTOMATED 230 10*3/uL (130-400); RED BLOOD COUNT 4.07 10*6/uL (4.10-5.10); RED CELL DISTRI WIDTH 15.4 % (0-14.5); WHITE BLOOD COUNT 6.3 10*3/uL (4.8-10.8)
[2017-03-20 13:09] LABS: ACT PARTIAL THROMBO TIME 26.1 SECONDS (20.8-31.5); INTERNATIONAL NORM RATIO 0.9 (2.0-3.5)
[2017-03-20 13:18] LABS: ALBUMIN 3.2 gm/dl (3.1-4.5); ALKALINE PHOSPHATASE 79 U/L (45-117); BUN 20 mg/dl (7-24); CHLORIDE 113 mmol/L (98-107); CREATININE 0.79 mg/dL (0.55-1.02); POTASSIUM 3.7 mmol/L (3.5-5.1); SGOT/AST 11 IU/L (3-35); SGPT/ALT 17 U/L (12-78); SODIUM 143 mmol/L (136-145); TOTAL PROTEIN 6.8 gm/dL (6.4-8.2)
[2017-03-20 13:20] LABS: TROPONIN I < 0.015 ng/ml (<0.045)
== END 2017-03-20 13:45 | disposition home or self-care (01) ==
LOC: ED 12:12
PROVIDERS: Emergency Medicine
DX: R07.89 Other chest pain (principal); R06.02 Shortness of breath; I50.30 Unspecified diastolic (congestive) heart failure; I10 Essential (primary) hypertension; F41.9 Anxiety disorder, unspecified; I25.10 Atherosclerotic heart disease of native coronary artery without angina pectoris; E11.9 Type 2 diabetes mellitus without complications; J44.9 Chronic obstructive pulmonary disease, unspecified; G43.909 Migraine, unspecified, not intractable, without status migrainosus; E78.00 Pure hypercholesterolemia, unspecified; Z88.8 Allergy status to other drugs, medicaments and biological substances; Z79.899 Other long term (current) drug therapy; Z79.82 Long term (current) use of aspirin; Z68.39 Body mass index [BMI] 39.0-39.9, adult; Z90.49 Acquired absence of other specified parts of digestive tract; Z90.710 Acquired absence of both cervix and uterus; Z90.89 Acquired absence of other organs

== ENCOUNTER 2017-06-01 20:44 | Emergency (ER) | payer MEDICARE, OTHER ==
[~2017-06-01] VITALS: Wt 97.5 kg
[~2017-06-01 20:44] MED LIST changes: +MONTELUKAST SOD10 MG PO; +POTASSIUM CHLO20 ME4 PO; +TRAMADOL HCL50 MG PO; +ZANTAC 300300 MG PO
[2017-06-01 20:49] VITALS: BP 148/88
== END 2017-06-01 20:58 | disposition home or self-care (01) ==
LOC: ED 20:44
DX: S90.562D Insect bite (nonvenomous), left ankle, subsequent encounter (principal); Z90.49 Acquired absence of other specified parts of digestive tract; Z90.710 Acquired absence of both cervix and uterus; Z98.890 Other specified postprocedural states; Z79.899 Other long term (current) drug therapy; Z79.82 Long term (current) use of aspirin; Z88.8 Allergy status to other drugs, medicaments and biological substances; W57.XXXD Bitten or stung by nonvenomous insect and other nonvenomous arthropods, subsequent encounter

== ENCOUNTER → 2017-06-07 | Outpatient (CLI) | payer MEDICARE, OTHER | END | disposition home or self-care (01) | LOC: WOUNDCARE 03:37 | DX: S80.862A Insect bite (nonvenomous), left lower leg, initial encounter (principal); J44.9 Chronic obstructive pulmonary disease, unspecified; I11.0 Hypertensive heart disease with heart failure; I50.9 Heart failure, unspecified; E10.9 Type 1 diabetes mellitus without complications; Z90.710 Acquired absence of both cervix and uterus; W57.XXXA Bitten or stung by nonvenomous insect and other nonvenomous arthropods, initial encounter; Y93.89 Activity, other specified; Y92.89 Other specified places as the place of occurrence of the external cause; Y99.8 Other external cause status ==

== ENCOUNTER → 2017-06-13 | Outpatient (CLI) | payer MEDICARE, OTHER | END | disposition home or self-care (01) | LOC: WOUNDCARE 02:16 | DX: S80.862D Insect bite (nonvenomous), left lower leg, subsequent encounter (principal); A69.20 Lyme disease, unspecified; J44.9 Chronic obstructive pulmonary disease, unspecified; E10.9 Type 1 diabetes mellitus without complications; I11.0 Hypertensive heart disease with heart failure; I50.9 Heart failure, unspecified; G51.0 Bell's palsy; Z90.710 Acquired absence of both cervix and uterus; W57.XXXD Bitten or stung by nonvenomous insect and other nonvenomous arthropods, subsequent encounter ==

== ENCOUNTER → 2017-06-21 | Outpatient (CLI) | payer MEDICARE, OTHER | END | disposition home or self-care (01) | LOC: WOUNDCARE 03:30 | DX: S80.862D Insect bite (nonvenomous), left lower leg, subsequent encounter (principal); A69.20 Lyme disease, unspecified; J44.9 Chronic obstructive pulmonary disease, unspecified; E10.9 Type 1 diabetes mellitus without complications; I11.0 Hypertensive heart disease with heart failure; I50.9 Heart failure, unspecified; G51.0 Bell's palsy; Z90.710 Acquired absence of both cervix and uterus; W57.XXXD Bitten or stung by nonvenomous insect and other nonvenomous arthropods, subsequent encounter ==

== ENCOUNTER → 2017-06-28 | Outpatient (CLI) | payer MEDICARE, OTHER | END | disposition home or self-care (01) | LOC: WOUNDCARE 00:48 | DX: S80.862D Insect bite (nonvenomous), left lower leg, subsequent encounter (principal); W57.XXXD Bitten or stung by nonvenomous insect and other nonvenomous arthropods, subsequent encounter; A69.20 Lyme disease, unspecified; E10.9 Type 1 diabetes mellitus without complications; I11.0 Hypertensive heart disease with heart failure; I50.9 Heart failure, unspecified; J44.9 Chronic obstructive pulmonary disease, unspecified; Z90.710 Acquired absence of both cervix and uterus ==

== ENCOUNTER 2017-06-30 09:33 | Emergency (ER) | payer MEDICARE, OTHER ==
[~2017-06-30] VITALS: Ht 165.1 cm; Wt 95.3 kg
[2017-06-30 09:36] VITALS: BP 151/62
[2017-06-30 09:58] LABS: BASO % 0.2 % (0.0-1.0); EOS % 0.2 % (1.0-4.0); HEMATOCRIT 39.9 % (37.0-47.0); HEMOGLOBIN 13.1 g/dl (12.0-16.0); LYMPH # 1.6 10*3/uL (1.3-4.4); LYMPH % 14.4 % (27.0-41.0); MEAN CORPUSCULAR HGB 28.2 pg (27.0-31.0); MEAN CORPUSCULAR HGB CONC 32.8 g/dl (33.0-37.0); MEAN PLATELET VOLUME 10.1 fl (9.6-12.3); MONO # 0.7 10*3/uL (0.1-1.0); NEUT # 8.7 10*3/uL (2.3-7.9); NEUT % 78.8 % (47.0-73.0); PLATELET COUNT AUTOMATED 275 10*3/uL (130-400); RED BLOOD COUNT 4.64 10*6/uL (4.10-5.10); RED CELL DISTRI WIDTH 15.5 % (0-14.5)
[2017-06-30 10:14] LABS: ALBUMIN 3.3 gm/dl (3.1-4.5); ALKALINE PHOSPHATASE 84 U/L (45-117); BUN 11 mg/dl (7-24); CHLORIDE 108 mmol/L (98-107); CREATININE 0.78 mg/dL (0.55-1.02); POTASSIUM 4.1 mmol/L (3.5-5.1); SGOT/AST 11 IU/L (3-35); SGPT/ALT 13 U/L (12-78); SODIUM 145 mmol/L (136-145)
== END 2017-06-30 10:38 | disposition home or self-care (01) ==
LOC: ED 09:33
PROVIDERS: Student in an Organized Health Care Education/Training Program
DX: R20.2 Paresthesia of skin (principal); I25.10 Atherosclerotic heart disease of native coronary artery without angina pectoris; I11.0 Hypertensive heart disease with heart failure; I50.9 Heart failure, unspecified; J44.9 Chronic obstructive pulmonary disease, unspecified; E11.9 Type 2 diabetes mellitus without complications; G43.909 Migraine, unspecified, not intractable, without status migrainosus; E66.9 Obesity, unspecified; E78.00 Pure hypercholesterolemia, unspecified; Z68.39 Body mass index [BMI] 39.0-39.9, adult; Z86.73 Personal history of transient ischemic attack (TIA), and cerebral infarction without residual deficits; Z90.49 Acquired absence of other specified parts of digestive tract; Z90.710 Acquired absence of both cervix and uterus; Z98.890 Other specified postprocedural states; Z79.82 Long term (current) use of aspirin; Z79.899 Other long term (current) drug therapy; Z88.8 Allergy status to other drugs, medicaments and biological substances

== ENCOUNTER → 2017-07-05 | Outpatient (CLI) | payer MEDICARE, OTHER | END | disposition home or self-care (01) | LOC: WOUNDCARE 02:11 | DX: S80.862D Insect bite (nonvenomous), left lower leg, subsequent encounter (principal); A69.20 Lyme disease, unspecified; E10.9 Type 1 diabetes mellitus without complications; I11.0 Hypertensive heart disease with heart failure; I50.9 Heart failure, unspecified; J44.9 Chronic obstructive pulmonary disease, unspecified; Z90.710 Acquired absence of both cervix and uterus; W57.XXXD Bitten or stung by nonvenomous insect and other nonvenomous arthropods, subsequent encounter ==

== ENCOUNTER 2017-07-25 08:08 | Emergency (ER) | payer MEDICARE, OTHER ==
[~2017-07-25] VITALS: Ht 170.1 cm; Wt 102.1 kg
[2017-07-25 08:46] LABS: BASO % 0.6 % (0.0-1.0); EOS # 0.1 10*3/uL (0.0-0.4); EOS % 2.1 % (1.0-4.0); HEMATOCRIT 39.2 % (37.0-47.0); HEMOGLOBIN 12.9 g/dl (12.0-16.0); LYMPH # 1.4 10*3/uL (1.3-4.4); LYMPH % 22.8 % (27.0-41.0); MEAN CORPUSCULAR HGB 28.3 pg (27.0-31.0); MEAN CORPUSCULAR HGB CONC 32.9 g/dl (33.0-37.0); MEAN PLATELET VOLUME 10.3 fl (9.6-12.3); MONO # 0.4 10*3/uL (0.1-1.0); MONO % 7.1 % (3.0-9.0); NEUT # 4.1 10*3/uL (2.3-7.9); NEUT % 67.1 % (47.0-73.0); PLATELET COUNT AUTOMATED 269 10*3/uL (130-400); RED BLOOD COUNT 4.56 10*6/uL (4.10-5.10); RED CELL DISTRI WIDTH 15.3 % (0-14.5); WHITE BLOOD COUNT 6.2 10*3/uL (4.8-10.8)
[2017-07-25 09:02] LABS: ALBUMIN 3.4 gm/dl (3.1-4.5); ALKALINE PHOSPHATASE 83 U/L (45-117); BUN 13 mg/dl (7-24); CHLORIDE 110 mmol/L (98-107); CREATININE 0.81 mg/dL (0.55-1.02); POTASSIUM 3.6 mmol/L (3.5-5.1); SGOT/AST 15 IU/L (3-35); SGPT/ALT 22 U/L (12-78); SODIUM 142 mmol/L (136-145); TOTAL PROTEIN 6.7 gm/dL (6.4-8.2)
[2017-07-25 09:03] LABS: TROPONIN I < 0.015 ng/ml (<0.045)
[2017-07-25 09:24] VITALS: BP 120/67
[2017-07-25] MEDS ORDERED: MEDROL DOSEPAK4 MG PO (09:57)
== END 2017-07-25 10:06 | disposition home or self-care (01) ==
LOC: ED 08:08
PROVIDERS: Emergency Medicine
DX: R06.00 Dyspnea, unspecified (principal); E66.9 Obesity, unspecified; E11.9 Type 2 diabetes mellitus without complications; I11.0 Hypertensive heart disease with heart failure; I50.9 Heart failure, unspecified; I25.10 Atherosclerotic heart disease of native coronary artery without angina pectoris; F41.9 Anxiety disorder, unspecified; J44.9 Chronic obstructive pulmonary disease, unspecified; Z68.30 Body mass index [BMI] 30.0-30.9, adult; Z90.49 Acquired absence of other specified parts of digestive tract; Z90.710 Acquired absence of both cervix and uterus; Z88.8 Allergy status to other drugs, medicaments and biological substances; Z79.82 Long term (current) use of aspirin; Z79.899 Other long term (current) drug therapy

== ENCOUNTER 2017-07-31 13:43 | Emergency (ER) | payer MEDICARE, OTHER ==
[~2017-07-31] VITALS: Ht 170.1 cm; Wt 102.1 kg
[2017-07-31 13:45] VITALS: BP 123/58
[2017-07-31 14:29] LABS: BASO % 0.6 % (0.0-1.0); EOS # 0.1 10*3/uL (0.0-0.4); EOS % 2.6 % (1.0-4.0); HEMATOCRIT 39.6 % (37.0-47.0); HEMOGLOBIN 12.7 g/dl (12.0-16.0); LYMPH # 1.8 10*3/uL (1.3-4.4); LYMPH % 33.6 % (27.0-41.0); MEAN CORPUSCULAR HGB 27.9 pg (27.0-31.0); MEAN CORPUSCULAR HGB CONC 32.1 g/dl (33.0-37.0); MEAN PLATELET VOLUME 10.5 fl (9.6-12.3); MONO # 0.4 10*3/uL (0.1-1.0); NEUT # 2.9 10*3/uL (2.3-7.9); NEUT % 54.8 % (47.0-73.0); PLATELET COUNT AUTOMATED 250 10*3/uL (130-400); RED BLOOD COUNT 4.55 10*6/uL (4.10-5.10); RED CELL DISTRI WIDTH 15.2 % (0-14.5); WHITE BLOOD COUNT 5.4 10*3/uL (4.8-10.8)
[2017-07-31 14:41] LABS: ACT PARTIAL THROMBO TIME 24.7 SECONDS (20.8-31.5); INTERNATIONAL NORM RATIO 0.9 (2.0-3.5)
[2017-07-31 14:49] LABS: ALBUMIN 3.5 gm/dl (3.1-4.5); ALKALINE PHOSPHATASE 91 U/L (45-117); BUN 14 mg/dl (7-24); CHLORIDE 110 mmol/L (98-107); CREATININE 0.82 mg/dL (0.55-1.02); POTASSIUM 4.3 mmol/L (3.5-5.1); SGOT/AST 12 IU/L (3-35); SGPT/ALT 18 U/L (12-78); SODIUM 142 mmol/L (136-145); TOTAL PROTEIN 6.9 gm/dL (6.4-8.2)
[2017-07-31 14:54] LABS: TROPONIN I < 0.015 ng/ml (<0.045)
[2017-07-31 15:32] LABS: BILIRUBIN NEGATIVE (NEGATIVE); BLOOD NEGATIVE (NEGATIVE); CLARITY CLEAR (CLEAR); COLOR YELLOW (YELLOW); GLUCOSE NEGATIVE (NEGATIVE); KETONE NEGATIVE (NEGATIVE); LEUKO ESTERASE NEGATIVE (NEGATIVE); NITRITE NEGATIVE (NEGATIVE); PH 7.5 (5.0-9.0)
[2017-07-31 15:41] LABS: BACTERIA TRACE; EPITHELIAL CELLS 50-60; RBC 0-2 rbc/hpf (0-2); WBC 0-2 wbc/hpf (0-5)
[2017-07-31] MEDS ORDERED: PREDNISONE50 MG PO (16:15)
[2017-07-31] MEDS ORDERED: ALBUTEROL2.5 MG/0.5 INH (16:15)
== END 2017-07-31 16:22 | disposition home or self-care (01) ==
LOC: ED 13:43
PROVIDERS: Emergency Medicine
DX: J45.901 Unspecified asthma with (acute) exacerbation (principal); E66.9 Obesity, unspecified; E11.9 Type 2 diabetes mellitus without complications; I11.0 Hypertensive heart disease with heart failure; I50.9 Heart failure, unspecified; E78.00 Pure hypercholesterolemia, unspecified; Z90.49 Acquired absence of other specified parts of digestive tract; Z90.710 Acquired absence of both cervix and uterus; Z98.890 Other specified postprocedural states; Z79.82 Long term (current) use of aspirin; Z79.899 Other long term (current) drug therapy; Z88.8 Allergy status to other drugs, medicaments and biological substances

== ENCOUNTER 2017-09-28 21:35 | Emergency (ER) | payer MEDICARE, OTHER ==
[~2017-09-28] VITALS: Wt 100.2 kg
[~2017-09-28 21:35] MED LIST changes: +ALBUTEROL2.5 MG/0.5 INH; +PREDNISONE50 MG PO
[2017-09-28 21:37] VITALS: BP 97/48
== END 2017-09-29 00:25 | disposition home or self-care (01) ==
LOC: ED 21:35
DX: S80.02XA Contusion of left knee, initial encounter (principal); Z90.710 Acquired absence of both cervix and uterus; Z90.49 Acquired absence of other specified parts of digestive tract; Z98.890 Other specified postprocedural states; Z79.82 Long term (current) use of aspirin; Z79.899 Other long term (current) drug therapy; Z88.8 Allergy status to other drugs, medicaments and biological substances; W01.198A Fall on same level from slipping, tripping and stumbling with subsequent striking against other object, initial encounter; Y93.89 Activity, other specified; Y92.89 Other specified places as the place of occurrence of the external cause; Y99.9 Unspecified external cause status

== ENCOUNTER 2017-12-23 17:46 | Emergency (ER) | payer MEDICARE, OTHER ==
[~2017-12-23] VITALS: Wt 99.3 kg
--- NOTE | ~2017-12-23 | EKG ---
[place], [place] ELECTROCARDIOGRAM REPORT NAME: LEANDRO TITUS UNIT #: [id number] ROOM: DOCTOR: EPIPHANY DRAFT REPORT BIRTHDATE: [birth year] [facility] Test Date: 2017-12-23 Test Time: 18:22:22 Pat Name: LEANDRO TITUS Department: Room: Gender: F Cheese Supervisor: EKG.[facility] : 1955 Requested By: LAWSON JURADO Order Number: [id number] Reading MD: Kevin Avery MD Measurements Intervals [place] Rate: 69 P: 34 IA: 166 QRS: 57 QRSD: 104 T: 12 QT: 419 QTc: 449 Interpretive Statements Sinus rhythm Low voltage, precordial leads Compared to ECG 11/19/2017 22:52:04 Low QRS voltage now present Intraventricular conduction delay no longer present Electronically Signed On 12-23-2017 19:06:04 PDT by Kevin Avery MD CM:EKGRPT:ELECTROCARDIOGRAM REPORT [id number] 1906 LAWSON JURADO EPIPHANY DRAFT REPORT LAWSON JURADO
[~2017-12-23 17:46] MED LIST changes: +PROAIR HFA8.5 GM INH; +QVAR REDIHALE10.6 GM INH; +SINGULAIR10 M1 PO
[2017-12-23 18:24] LABS: BASO % 0.7 % (0.0-1.0); EOS # 0.1 10*3/uL (0.0-0.4); EOS % 1.5 % (1.0-4.0); HEMOGLOBIN 12.6 g/dl (12.0-16.0); LYMPH # 1.8 10*3/uL (1.3-4.4); LYMPH % 32.8 % (27.0-41.0); MEAN CELL VOLUME 84.6 fl (81.0-99.0); MEAN CORPUSCULAR HGB 28.1 pg (27.0-31.0); MEAN CORPUSCULAR HGB CONC 33.2 g/dl (33.0-37.0); MEAN PLATELET VOLUME 9.9 fl (9.6-12.3); MONO # 0.4 10*3/uL (0.1-1.0); MONO % 6.6 % (3.0-9.0); NEUT # 3.2 10*3/uL (2.3-7.9); NEUT % 58.2 % (47.0-73.0); PLATELET COUNT AUTOMATED 263 10*3/uL (130-400); RED BLOOD COUNT 4.49 10*6/uL (4.10-5.10); RED CELL DISTRI WIDTH 14.7 % (0-14.5); WHITE BLOOD COUNT 5.4 10*3/uL (4.8-10.8)
[2017-12-23 18:42] LABS: ALBUMIN 3.5 gm/dl (3.1-4.5); ALKALINE PHOSPHATASE 75 U/L (45-117); BUN 11 mg/dl (7-24); CHLORIDE 109 mmol/L (98-107); CREATININE 0.67 mg/dL (0.55-1.02); POTASSIUM 3.3 mmol/L (3.5-5.1); SGOT/AST 15 IU/L (3-35); SGPT/ALT 25 U/L (12-78); SODIUM 143 mmol/L (136-145); TOTAL PROTEIN 6.9 gm/dL (6.4-8.2)
[2017-12-23 18:43] LABS: TROPONIN I < 0.015 ng/ml (<0.045)
[2017-12-23 19:05] VITALS: BP 111/50
[2017-12-23] MEDS ORDERED: PREDNISONE10 MG PO (19:07)
[2018-01-27] MEDS ORDERED: GUAIFENESIN AC473 M1 PO (14:57)
[2018-01-28] MEDS ORDERED: PREDNISONE10 MG PO (13:08)
[2018-01-28] MEDS ORDERED: LEVOFLOXACIN500 MG PO (13:08)
== END 2017-12-23 19:08 | disposition home or self-care (01) ==
LOC: ED 17:46
PROVIDERS: Nurse Practitioner Family
DX: J44.1 Chronic obstructive pulmonary disease with (acute) exacerbation (principal); I50.9 Heart failure, unspecified; I25.10 Atherosclerotic heart disease of native coronary artery without angina pectoris; E11.9 Type 2 diabetes mellitus without complications; G43.909 Migraine, unspecified, not intractable, without status migrainosus; E66.9 Obesity, unspecified; Z68.30 Body mass index [BMI] 30.0-30.9, adult; Z90.710 Acquired absence of both cervix and uterus; Z90.49 Acquired absence of other specified parts of digestive tract; Z88.8 Allergy status to other drugs, medicaments and biological substances; Z79.82 Long term (current) use of aspirin; Z79.899 Other long term (current) drug therapy

== ENCOUNTER 2018-02-10 12:42 | Emergency (ER) | payer MEDICARE, OTHER ==
[~2018-02-10] VITALS: Ht 167.6 cm; Wt 74.8 kg
[~2018-02-10 12:42] MED LIST changes: +GUAIFENESIN AC473 M1 PO; +LEVOFLOXACIN500 MG PO; +PREDNISONE10 MG PO
[2018-02-10 12:45] VITALS: BP 114/54
[2018-02-10 13:13] LABS: BASO % 0.3 % (0.0-1.0); EOS # 0.1 10*3/uL (0.0-0.4); HEMATOCRIT 37.9 % (37.0-47.0); HEMOGLOBIN 12.5 g/dl (12.0-16.0); LYMPH # 1.9 10*3/uL (1.3-4.4); LYMPH % 27.2 % (27.0-41.0); MEAN CELL VOLUME 85.2 fl (81.0-99.0); MEAN CORPUSCULAR HGB 28.1 pg (27.0-31.0); MEAN PLATELET VOLUME 9.9 fl (9.6-12.3); MONO # 0.5 10*3/uL (0.1-1.0); MONO % 6.9 % (3.0-9.0); NEUT # 4.4 10*3/uL (2.3-7.9); PLATELET COUNT AUTOMATED 231 10*3/uL (130-400); RED BLOOD COUNT 4.45 10*6/uL (4.10-5.10); RED CELL DISTRI WIDTH 15.4 % (0-14.5); WHITE BLOOD COUNT 6.9 10*3/uL (4.8-10.8)
[2018-02-10 13:27] LABS: ALBUMIN 3.2 gm/dl (3.1-4.5); ALKALINE PHOSPHATASE 88 U/L (45-117); BUN 13 mg/dl (7-24); CHLORIDE 110 mmol/L (98-107); CREATININE 0.66 mg/dL (0.55-1.02); POTASSIUM 3.6 mmol/L (3.5-5.1); SGOT/AST 10 IU/L (3-35); SGPT/ALT 16 U/L (12-78); SODIUM 142 mmol/L (136-145); TOTAL PROTEIN 6.5 gm/dL (6.4-8.2)
[2018-02-10] MEDS ORDERED: Ipratropium Brom3 ML INH ×2 (13:58→14:01)
[2018-02-10] MEDS ORDERED: TESSALON PERLE100 M1 PO (14:03)
== END 2018-02-10 14:47 | disposition home or self-care (01) ==
LOC: ED 12:42
PROVIDERS: Emergency Medicine
DX: J44.1 Chronic obstructive pulmonary disease with (acute) exacerbation (principal); R22.0 Localized swelling, mass and lump, head; I25.10 Atherosclerotic heart disease of native coronary artery without angina pectoris; I11.0 Hypertensive heart disease with heart failure; I50.9 Heart failure, unspecified; E11.9 Type 2 diabetes mellitus without complications; G43.909 Migraine, unspecified, not intractable, without status migrainosus; E66.9 Obesity, unspecified; Z91.013 Allergy to seafood; Z88.8 Allergy status to other drugs, medicaments and biological substances; Z79.2 Long term (current) use of antibiotics; Z79.899 Other long term (current) drug therapy; Z68.30 Body mass index [BMI] 30.0-30.9, adult; Z86.73 Personal history of transient ischemic attack (TIA), and cerebral infarction without residual deficits; Z90.710 Acquired absence of both cervix and uterus; Z90.49 Acquired absence of other specified parts of digestive tract

== ENCOUNTER 2018-02-20 01:25 | Inpatient (IN) | payer MEDICARE, OTHER ==
[~2018-02-20] VITALS: Ht 170.1 cm; Wt 98.1 kg
--- NOTE | ~2018-02-20 | CON ---
[place], [place] REPORT OF CONSULTATION NAME[id number] UNIT #: [id number] ROOM: 519 DOCTOR: JANETT SAHA MD BIRTHDATE: [birth year] DOS: 02/20/2018 CARDIOLOGY CONSULTATION REASON FOR CONSULTATION: Chest pain. HISTORY: This is one of multiple hospitalizations for the patient who is a 62-year-old woman, typically followed by Dr. Dhlilon for atypical chest pain. She does have multiple risk factors for coronary artery disease including type 2 diabetes mellitus and hypertension. Nonetheless, she has never been documented as having coronary artery disease. Dr. Dhillon did a catheterization on her in 2006, which was reportedly normal. She has had yearly stress tests as part of evaluations for recurrent chest pain in 2013, 2014, 2015 and 2016. All of these showed normal myocardial perfusion and were low risk. She was in her normal state of health yesterday. She was sitting at rest when she developed pain in the center of her chest without radiation. She denied diaphoresis, but she did feel short of breath. She stated that taking a deep breath would make the pain worse. She stated that the area of her chest was also tender to touch. She came to the Emergency Room where she was given nitroglycerin and states that her pain was improved, but not relieved. Her electrocardiogram showed no acute changes and cardiac biomarkers were all normal. We were asked to evaluate her and do a stress test since Dr. Dhillon was not available. PAST MEDICAL HISTORY: Includes: 1. Anxiety. 2. Obstructive lung disease. 3. Depression. 4. Type 2 diabetes mellitus. 5. Essential hypertension. 6. History of dyspepsia and hiatal hernia. 7. History of migraine headaches. 8. History of postconcussion syndrome. 9. Status post appendectomy, breast biopsy, hysterectomy, tonsillectomy and cardiac catheterization. MEDICATIONS PRIOR TO ADMISSION: Albuterol 2 puffs q. 4 hours p.r.n., Atrovent by nebulizer q. 4 hours p.r.n., alprazolam 0.5 mg b.i.d., benzonatate 100 mg t.i.d., cholecalciferol 2000 units daily, guaifenesin with codeine p.r.n. cough, escitalopram 20 mg daily, levofloxacin 500 mg daily, montelukast 10 mg daily, nifedipine 30 mg daily, potassium 20 mEq b.i.d., prednisone 10 mg daily, ranitidine 300 mg daily, Kombiglyze XR 5/500 one daily, Geodon 20 mg every morning and 40 mg at bedtime. ALLERGIES: She lists allergies to FISH, SHELLFISH and LISINOPRIL. She states that the LISINOPRIL caused her heart to race. She denied any history of angioedema or swelling of her face and tongue. REVIEW OF SYSTEMS: The patient denies diplopia or loss of vision. She is very [place], [place] REPORT OF CONSULTATION NAME: LEANDRO TITUS UNIT #: [id number] ROOM: [facility] DOCTOR: JANETT SAHA MD BIRTHDATE: [birth year] sleepy this morning. She denies focal weakness. She denies fevers, chills, sweats or recent weight change. She denies nausea or vomiting. She did have some dyspnea with the chest pain. She denies diaphoresis. She denies hemoptysis, but she does have a cough. She denies hematemesis. She denies change in bowel or bladder habits. She denies blood in her stools or urine. She denies any easy bruising or bleeding. She denies skin rashes. She denies any current abdominal pain. She denies any swelling in her legs and denies any history of DVT or palpable cords in her legs. She denies polyuria or polydipsia and denies heat or cold intolerance. The remainder of the review of systems is negative except as noted above. FAMILY HISTORY: Negative for early coronary artery disease. SOCIAL HISTORY: The patient denies alcohol or cigarette use. She does not use illegal drugs. PHYSICAL EXAMINATION: GENERAL: The patient is an obese -Somali woman who is awake, alert and oriented, although she is somewhat drowsy if left alone for a few minutes. VITAL SIGNS: Pulse is 62 and regular, blood pressure is 122/45. She is afebrile. She weighs 98.1 kg and has a body mass index of 33.9. HEENT: Normocephalic and atraumatic. Extraocular muscles are intact. Sclerae are clear. Pupils are equal, round and react to light. The oral mucosa is moist. Tongue is midline. NECK: Supple. She has no jugular distention. Carotids are full. I heard no bruits. She had no neck or supraclavicular masses, no thyromegaly. LUNGS: Respirations are unlabored. Her chest has decreased breath sounds at the bases, but is otherwise clear without wheezes or rales. She has no presacral edema. She does have tenderness over the anterior left precordial region, which reproduces her presenting pain. CARDIOVASCULAR: Her heart has a regular rhythm without murmurs, rubs or gallops. The PMI is not displaced. There is no precordial heave, lift or thrill. ABDOMEN: Soft and normally active without masses, organomegaly, bruits or tenderness. EXTREMITIES: Showed no clubbing, cyanosis or edema. Peripheral pulses are easily palpated in the feet bilaterally. She did not have any palpable cords or Homans sign. DIAGNOSTIC AND LABORATORY DATA: I reviewed her electrocardiograms and they are all normal without any acute ST or T-wave changes. Serial troponin levels have all been negative. ProBNP is normal at 52. Sodium is 144, potassium 3.5, chloride 112, CO2 of 23, BUN 8, creatinine 0.64. IMPRESSION: 1. Atypical chest pain, which is reproducible on exam. The patient has been evaluated for chest pain on numerous occasions in the past without a diagnosis of coronary artery disease being made. 2. Multiple risk factors including hypertension, diabetes, obesity. [place], [place] REPORT OF CONSULTATION NAME: LEANDRO TITUS UNIT #: [id number] ROOM: [facility] DOCTOR: JANETT SAHA MD BIRTHDATE: [birth year] PLAN: The patient is already scheduled for a stress test and we will proceed with that. No other cardiac workup is planned at this time. Further recommendations will depend upon the results of the stress test. I thank the hospitalist physicians for asking our advice regarding her care. JANETT SAHA MD CM:CONSTR:REPORT OF CONSULTATION 0946 02/20/18 1519 interface
--- NOTE | ~2018-02-20 | EKG ---
[place], [place] ELECTROCARDIOGRAM REPORT NAME: LEANDRO TITUS UNIT #: [id number] ROOM: 519 DOCTOR: EPIPHANY DRAFT REPORT BIRTHDATE: [birth year] [facility] Test Date: 2018-02-20 Test Time: 01:32:15 Pat Name: LEANDRO TITUS Department: Room: 519 Gender: F Neck Pinner: Kevin Haywood : 1955 Requested By: GARRETT JACQUES Order Number: [id number] Reading MD: Roosevelt Dhillon MD Measurements Intervals [place] Rate: 82 P: 44 [place]: 160 QRS: 24 QRSD: 109 T: 24 QT: 415 QTc: 485 Interpretive Statements Sinus rhythm Compared to ECG 01/27/2018 11:29:03 No significant changes Electronically Signed On 02-20-2018 7:53:16 PST by Roosevelt Dhillon MD CM:EKGRPT:ELECTROCARDIOGRAM REPORT [id number] 0753 GARRETT JACQUES MD EPIPHANY DRAFT REPORT GARRETT JACQUES MD
--- NOTE | ~2018-02-20 | EKG ---
[place], [place] ELECTROCARDIOGRAM REPORT NAME: LEANDRO TITUS UNIT #: [id number] ROOM: 519 DOCTOR: EPIPHANY DRAFT REPORT BIRTHDATE: [birth year] [facility] Test Date: 2018-02-20 Test Time: 04:13:25 Pat Name: LEANDRO TITUS Department: Room: 519 Gender: F Music Producer: Maegan Rutherford : 1955 Requested By: GARRETT JACQUES Order Number: [id number] Reading MD: Roosevelt Dhillon MD Measurements Intervals [place] Rate: 69 P: 48 WI: 156 QRS: 60 QRSD: 111 T: 37 QT: 424 QTc: 455 Interpretive Statements Sinus rhythm Compared to ECG 01/27/2018 11:29:03 No significant changes Electronically Signed On 02-20-2018 7:53:23 PST by Roosevelt Dhillon MD CM:EKGRPT:ELECTROCARDIOGRAM REPORT [id number] 0753 GARRETT JACQUES MD EPIPHANY DRAFT REPORT GARRETT JACQUES MD
--- NOTE | ~2018-02-20 | EKG ---
[place], [place] ELECTROCARDIOGRAM REPORT NAME: LEANDRO TITUS UNIT #: [id number] ROOM: 519 DOCTOR: EPIPHANY DRAFT REPORT BIRTHDATE: [birth year] [facility] Test Date: 2018-02-20 Test Time: 07:37:48 Pat Name: LEANDRO TITUS Department: Room: 519 Gender: F Mail Clerk: Keyanna Wyatt : 1955 Requested By: GARRETT JACQUES Order Number: [id number] Reading MD: Roosevelt Dhillon MD Measurements Intervals [place] Rate: 74 P: 46 DC: 184 QRS: 66 QRSD: 103 T: 49 QT: 450 QTc: 500 Interpretive Statements Sinus arrhythmia Borderline prolonged QT interval Compared to ECG 01/27/2018 11:29:03 Sinus rhythm no longer present Electronically Signed On 02-20-2018 7:53:34 PST by Roosevelt Dhillon MD CM:EKGRPT:ELECTROCARDIOGRAM REPORT [id number] GARRETT JACQUES MD EPIPHANY DRAFT REPORT GARRETT JACQUES MD
[~2018-02-20 01:25] MED LIST changes: +Ipratropium Brom3 ML INH; +TESSALON PERLE100 M1 PO
[2018-02-20 01:31] VITALS: BP 133/58
[2018-02-20 01:48] LABS: BASO % 0.7 % (0.0-1.0); EOS # 0.2 10*3/uL (0.0-0.4); EOS % 3.4 % (1.0-4.0); HEMATOCRIT 36.5 % (37.0-47.0); HEMOGLOBIN 12.2 g/dl (12.0-16.0); LYMPH # 1.7 10*3/uL (1.3-4.4); LYMPH % 38.2 % (27.0-41.0); MEAN CELL VOLUME 85.1 fl (81.0-99.0); MEAN CORPUSCULAR HGB 28.4 pg (27.0-31.0); MEAN CORPUSCULAR HGB CONC 33.4 g/dl (33.0-37.0); MONO # 0.3 10*3/uL (0.1-1.0); MONO % 7.8 % (3.0-9.0); NEUT # 2.2 10*3/uL (2.3-7.9); NEUT % 49.7 % (47.0-73.0); PLATELET COUNT AUTOMATED 222 10*3/uL (130-400); RED BLOOD COUNT 4.29 10*6/uL (4.10-5.10); RED CELL DISTRI WIDTH 15.2 % (0-14.5); WHITE BLOOD COUNT 4.4 10*3/uL (4.8-10.8)
[2018-02-20 01:59] LABS: ACT PARTIAL THROMBO TIME 25.7 SECONDS (20.8-31.5); INTERNATIONAL NORM RATIO 0.9 (2.0-3.5)
[2018-02-20 02:06] LABS: ALBUMIN 3.1 gm/dl (3.1-4.5); ALKALINE PHOSPHATASE 80 U/L (45-117); BUN 8 mg/dl (7-24); CHLORIDE 111 mmol/L (98-107); CREATININE 0.71 mg/dL (0.55-1.02); POTASSIUM 3.2 mmol/L (3.5-5.1); SGOT/AST 11 IU/L (3-35); SGPT/ALT 15 U/L (12-78); SODIUM 146 mmol/L (136-145); TOTAL PROTEIN 6.4 gm/dL (6.4-8.2)
[2018-02-20 02:09] LABS: TROPONIN I < 0.015 ng/ml (<0.045)
[2018-02-20 02:55] VITALS: BP 129/52
[2018-02-20 03:32] VITALS: BP 126/53
[2018-02-20 03:43] VITALS: BP 119/45
[2018-02-20 04:02] VITALS: BP 122/52
[2018-02-20 04:10] VITALS: BP 122/45
[2018-02-20 04:31] LABS: BASO % 0.5 % (0.0-1.0); EOS # 0.1 10*3/uL (0.0-0.4); EOS % 3.1 % (1.0-4.0); HEMATOCRIT 37.5 % (37.0-47.0); HEMOGLOBIN 12.3 g/dl (12.0-16.0); LYMPH # 1.4 10*3/uL (1.3-4.4); LYMPH % 35.4 % (27.0-41.0); MEAN CELL VOLUME 86.4 fl (81.0-99.0); MEAN CORPUSCULAR HGB 28.3 pg (27.0-31.0); MEAN CORPUSCULAR HGB CONC 32.8 g/dl (33.0-37.0); MEAN PLATELET VOLUME 11.1 fl (9.6-12.3); MONO # 0.4 10*3/uL (0.1-1.0); NEUT % 51.7 % (47.0-73.0); PLATELET COUNT AUTOMATED 186 10*3/uL (130-400); RED BLOOD COUNT 4.34 10*6/uL (4.10-5.10); RED CELL DISTRI WIDTH 15.1 % (0-14.5); WHITE BLOOD COUNT 3.9 10*3/uL (4.8-10.8)
[2018-02-20 04:43] LABS: BUN 8 mg/dl (7-24); CHLORIDE 112 mmol/L (98-107); CREATININE 0.64 mg/dL (0.55-1.02); POTASSIUM 3.5 mmol/L (3.5-5.1); SODIUM 144 mmol/L (136-145)
[2018-02-20 04:44] LABS: PHOSPHOROUS 3.5 mg/dL (2.5-4.9)
[2018-02-20 04:48] LABS: LIPASE 122 U/L (73-393)
[2018-02-20 04:52] LABS: TROPONIN I < 0.015 ng/ml (<0.045)
[2018-02-20] MEDS ORDERED: FIORICET 50-301 EACH PO (15:38)
== END 2018-02-20 16:26 | disposition home or self-care (01) | DRG 194 ==
LOC: ED 01:25 → 5E 03:28 → EDHOLD 03:28 → 5E 03:54
PROVIDERS: Emergency Medicine Emergency Medical Services; Family Medicine
DX: R09.1 Pleurisy (principal); E44.0 Moderate protein-calorie malnutrition; E87.0 Hyperosmolality and hypernatremia; E87.6 Hypokalemia; R07.89 Other chest pain; K21.9 Gastro-esophageal reflux disease without esophagitis; F41.9 Anxiety disorder, unspecified; I25.10 Atherosclerotic heart disease of native coronary artery without angina pectoris; E11.65 Type 2 diabetes mellitus with hyperglycemia; E87.8 Other disorders of electrolyte and fluid balance, not elsewhere classified; I50.9 Heart failure, unspecified; E55.9 Vitamin D deficiency, unspecified; F32.9 Major depressive disorder, single episode, unspecified; J44.9 Chronic obstructive pulmonary disease, unspecified; I11.0 Hypertensive heart disease with heart failure; G43.909 Migraine, unspecified, not intractable, without status migrainosus; E66.9 Obesity, unspecified; Z88.8 Allergy status to other drugs, medicaments and biological substances; Z91.013 Allergy to seafood; Z86.73 Personal history of transient ischemic attack (TIA), and cerebral infarction without residual deficits; Z87.01 Personal history of pneumonia (recurrent); Z90.710 Acquired absence of both cervix and uterus; Z82.49 Family history of ischemic heart disease and other diseases of the circulatory system; Z82.3 Family history of stroke; Z83.3 Family history of diabetes mellitus; Z84.1 Family history of disorders of kidney and ureter; Z79.899 Other long term (current) drug therapy; Z68.33 Body mass index [BMI] 33.0-33.9, adult

== ENCOUNTER 2018-03-25 16:35 | Emergency (ER) | payer MEDICARE, OTHER ==
[~2018-03-25] VITALS: Ht 170.1 cm; Wt 98.0 kg
[~2018-03-25 16:35] MED LIST changes: +FIORICET 50-301 EACH PO
[2018-03-25 16:38] VITALS: BP 142/54
[2018-03-25] MEDS ORDERED: CYCLOBENZAPRINE5 M3 PO (19:17)
[2018-03-25] MEDS ORDERED: MEDROL DOSEPAK4 MG PO (19:17)
[2018-05-29] MEDS ORDERED: QVAR REDIHALE10.6 GM INH (20:05)
[2018-05-30] MEDS ORDERED: PREDNISONE10 MG PO (14:55)
[2018-05-30] MEDS ORDERED: LEVAQUIN500 M2 PO (14:55)
== END 2018-03-25 19:21 | disposition home or self-care (01) ==
LOC: ED 16:35
DX: M54.12 Radiculopathy, cervical region (principal); I25.10 Atherosclerotic heart disease of native coronary artery without angina pectoris; J44.9 Chronic obstructive pulmonary disease, unspecified; E11.9 Type 2 diabetes mellitus without complications; G43.909 Migraine, unspecified, not intractable, without status migrainosus; I11.0 Hypertensive heart disease with heart failure; I50.9 Heart failure, unspecified; E66.9 Obesity, unspecified; Z91.013 Allergy to seafood; Z88.8 Allergy status to other drugs, medicaments and biological substances; Z79.899 Other long term (current) drug therapy; Z90.49 Acquired absence of other specified parts of digestive tract; Z90.710 Acquired absence of both cervix and uterus; Z68.30 Body mass index [BMI] 30.0-30.9, adult

== ENCOUNTER → 2018-05-01 | Outpatient (CLI) | payer MEDICARE, OTHER ==
[~2018-05-01] MED LIST changes: +ASPIRIN ADULT L81 MG PO; +CIPRO500 MG PO; +CYCLOBENZAPRINE5 M3 PO; +FUROSEMIDE40 MG PO; +Fioricet 325 MG1 TAB PO; +LASIX; +LEVAQUIN500 M2 PO; +OXYBUTYNIN5 MG PO; +SUMATRIPTAN SU100 M1 PO
== END | disposition home or self-care (01) ==
LOC: MAMMO 04-16 08:20
DX: Z12.31 Encounter for screening mammogram for malignant neoplasm of breast (principal)

== ENCOUNTER 2018-10-19 07:23 | Emergency (ER) | payer MEDICARE, OTHER ==
[~2018-10-19] VITALS: Ht 170.1 cm; Wt 96.2 kg
[~2018-10-19 07:23] MED LIST changes: -Fioricet 325 MG1 TAB PO; -SUMATRIPTAN SU100 M1 PO
[2018-10-19 09:00] VITALS: BP 139/62
[2018-10-19] MEDS ORDERED: Fioricet 325 MG1 TAB PO (09:32)
[2018-10-29] MEDS ORDERED: SUMATRIPTAN SU100 M1 PO (04:07)
== END 2018-10-19 09:38 | disposition home or self-care (01) ==
LOC: ED 07:23
DX: G43.909 Migraine, unspecified, not intractable, without status migrainosus (principal); R11.0 Nausea; I25.10 Atherosclerotic heart disease of native coronary artery without angina pectoris; J44.9 Chronic obstructive pulmonary disease, unspecified; E66.9 Obesity, unspecified; Z68.39 Body mass index [BMI] 39.0-39.9, adult; E11.9 Type 2 diabetes mellitus without complications; I50.9 Heart failure, unspecified; I11.0 Hypertensive heart disease with heart failure; Z88.8 Allergy status to other drugs, medicaments and biological substances; Z79.899 Other long term (current) drug therapy; Z79.82 Long term (current) use of aspirin; Z91.013 Allergy to seafood; Z86.718 Personal history of other venous thrombosis and embolism

== ENCOUNTER 2018-12-15 11:03 | Emergency (ER) | payer MEDICARE, OTHER ==
[~2018-12-15] VITALS: Ht 170.1 cm; Wt 93.4 kg
[~2018-12-15 11:03] MED LIST changes: +Fioricet 325 MG1 TAB PO; +SUMATRIPTAN SU100 M1 PO
[2018-12-15 12:07] VITALS: BP 140/88
[2018-12-15 12:13] LABS: BASO % 0.6 % (0.0-1.0); EOS # 0.1 10*3/uL (0.0-0.4); EOS % 1.1 % (1.0-4.0); HEMATOCRIT 38.2 % (37.0-47.0); HEMOGLOBIN 12.9 g/dl (12.0-16.0); LYMPH # 1.4 10*3/uL (1.3-4.4); LYMPH % 25.4 % (27.0-41.0); MEAN CELL VOLUME 85.7 fl (81.0-99.0); MEAN CORPUSCULAR HGB 28.9 pg (27.0-31.0); MEAN CORPUSCULAR HGB CONC 33.8 g/dl (33.0-37.0); MEAN PLATELET VOLUME 10.4 fl (9.6-12.3); MONO # 0.5 10*3/uL (0.1-1.0); MONO % 8.3 % (3.0-9.0); NEUT # 3.5 10*3/uL (2.3-7.9); NEUT % 64.4 % (47.0-73.0); PLATELET COUNT AUTOMATED 241 10*3/uL (130-400); RED BLOOD COUNT 4.46 10*6/uL (4.10-5.10); RED CELL DISTRI WIDTH 15.2 % (0-14.5); WHITE BLOOD COUNT 5.4 10*3/uL (4.8-10.8)
[2018-12-15 12:17] LABS: BILIRUBIN NEGATIVE (NEGATIVE); BLOOD NEGATIVE (NEGATIVE); COLOR YELLOW (YELLOW); GLUCOSE NEGATIVE (NEGATIVE); KETONE NEGATIVE (NEGATIVE); LEUKO ESTERASE TRACE (NEGATIVE); NITRITE POSITIVE (NEGATIVE); UROBILINOGEN 0.2 E.U./dl (0.2-1.0)
[2018-12-15 12:33] LABS: BACTERIA 3+; CLARITY SL CLOUDY (CLEAR)
[2018-12-15 12:34] LABS: ALBUMIN 3.5 gm/dl (3.1-4.5); ALKALINE PHOSPHATASE 76 U/L (45-117); BUN 12 mg/dl (7-24); CHLORIDE 111 mmol/L (98-107); POTASSIUM 4.2 mmol/L (3.5-5.1); SGOT/AST 9 IU/L (3-35); SGPT/ALT 11 U/L (12-78); SODIUM 141 mmol/L (136-145); TOTAL PROTEIN 6.8 gm/dL (6.4-8.2)
[2018-12-15] MEDS ORDERED: CEFUROXIME AXE500 MG PO (13:07)
== END 2018-12-15 14:35 | disposition home or self-care (01) ==
LOC: ED 11:03
PROVIDERS: Nurse Practitioner Family
DX: N39.0 Urinary tract infection, site not specified (principal); E11.649 Type 2 diabetes mellitus with hypoglycemia without coma; R05 Cough; J44.9 Chronic obstructive pulmonary disease, unspecified; Z88.8 Allergy status to other drugs, medicaments and biological substances; Z91.013 Allergy to seafood; Z79.899 Other long term (current) drug therapy; Z79.82 Long term (current) use of aspirin; Z90.710 Acquired absence of both cervix and uterus; Z90.49 Acquired absence of other specified parts of digestive tract

== ENCOUNTER 2019-01-25 17:06 | Observation (INO) | payer MEDICARE, OTHER ==
[~2019-01-25] VITALS: Ht 170.1 cm; Wt 95.1 kg
--- NOTE | ~2019-01-25 | EKG ---
[place], [place] ELECTROCARDIOGRAM REPORT NAME: LEANDRO TITUS UNIT #: [id number] ROOM: 511 DOCTOR: KAYLIN DRAFT REPORT BIRTHDATE: [birth year] [facility] Test Date: 2019-01-25 Test Time: 17:08:51 Pat Name: LEANDRO TITUS Department: Room: 511 Gender: F Field Merchandiser: : 1955 Requested By: ZACK INGRAM Order Number: [id number] Reading MD: Samanta Renteria MD Measurements Intervals [place] Rate: 88 P: 60 TN: 161 QRS: 46 QRSD: 95 T: 24 QT: 372 QTc: 450 Interpretive Statements Sinus rhythm Baseline wander in lead(s) V3 Compared to ECG 10/28/2018 14:19:19 T-wave abnormality no longer present Electronically Signed On 01-28-2019 6:35:16 PST by Samanta Renteria MD CM:EKGRPT:ELECTROCARDIOGRAM REPORT [id number] 0635 ZACK EWING DRAFT REPORT ZACK INGRAM MD
--- NOTE | ~2019-01-25 | EKG ---
[place], [place] ELECTROCARDIOGRAM REPORT NAME: LEANDRO TITUS UNIT #: [id number] ROOM: 511 DOCTOR: KAYLIN DRAFT REPORT BIRTHDATE: [birth year] [facility] Test Date: 2019-01-25 Test Time: 20:16:49 Pat Name: LEANDRO TITUS Department: Room: 511 Gender: F Rubber Tubing Backer: Sami Santos : 1955 Requested By: ZACK INGRAM Order Number: [id number] Reading MD: Samanta Renteria MD Measurements Intervals [place] Rate: 82 P: 62 RI: 163 QRS: 79 QRSD: 101 T: 40 QT: 391 QTc: 457 Interpretive Statements Sinus rhythm Abnormal R-wave progression, late transition Compared to ECG 10/28/2018 14:19:19 T-wave abnormality no longer present Electronically Signed On 01-28-2019 6:35:22 PST by Samanta Renteria MD CM:EKGRPT:ELECTROCARDIOGRAM REPORT [id number] [id number] ZACK EIWNG DRAFT REPORT ZACK INGRAM MD
--- NOTE | ~2019-01-25 | EKG ---
[place], [place] ELECTROCARDIOGRAM REPORT NAME: LEANDRO TITUS UNIT #: [id number] ROOM: 511 DOCTOR: KAYLIN DRAFT REPORT BIRTHDATE: [birth year] [facility] Test Date: 2019-01-25 Test Time: 23:07:09 Pat Name: LEANDRO TITUS Department: Room: 511 Gender: F Generating Plant Superintendent: Sami Santos : 1955 Requested By: ZACK INGRAM Order Number: [id number] Reading MD: Samanta Renteria MD Measurements Intervals [place] Rate: 79 P: 55 MS: 174 QRS: 55 QRSD: 101 T: 32 QT: 402 QTc: 461 Interpretive Statements Sinus rhythm Abnormal R-wave progression, late transition Baseline wander in lead(s) V5 Compared to ECG 10/28/2018 14:19:19 T-wave abnormality no longer present Electronically Signed On 01-28-2019 6:35:30 PST by Samanta Renteria MD CM:EKGRPT:ELECTROCARDIOGRAM REPORT [id number] 0635 ZACK INGRAM MD EPIPHANY DRAFT REPORT ZACK INGRAM MD
[~2019-01-25 17:06] MED LIST changes: +CEFUROXIME AXE500 MG PO
[2019-01-25 17:09] VITALS: BP 119/48
[2019-01-25 17:28] LABS: BASO % 0.3 % (0.0-1.0); EOS # 0.1 10*3/uL (0.0-0.4); EOS % 0.8 % (1.0-4.0); HEMATOCRIT 36.8 % (37.0-47.0); HEMOGLOBIN 11.9 g/dl (12.0-16.0); LYMPH # 1.3 10*3/uL (1.3-4.4); LYMPH % 18.2 % (27.0-41.0); MEAN CELL VOLUME 87.8 fl (81.0-99.0); MEAN CORPUSCULAR HGB 28.4 pg (27.0-31.0); MEAN CORPUSCULAR HGB CONC 32.3 g/dl (33.0-37.0); MEAN PLATELET VOLUME 9.1 fl (9.6-12.3); MONO # 0.4 10*3/uL (0.1-1.0); NEUT # 5.4 10*3/uL (2.3-7.9); NEUT % 75.4 % (47.0-73.0); PLATELET COUNT AUTOMATED 441 10*3/uL (130-400); RED BLOOD COUNT 4.19 10*6/uL (4.10-5.10); RED CELL DISTRI WIDTH 15.4 % (0-14.5); WHITE BLOOD COUNT 7.2 10*3/uL (4.8-10.8)
[2019-01-25 17:41] LABS: ACT PARTIAL THROMBO TIME 27.4 SECONDS (20.0-32.1); INTERNATIONAL NORM RATIO 0.9 (2.0-3.5)
[2019-01-25 17:43] LABS: ALKALINE PHOSPHATASE 87 U/L (45-117); BUN 12 mg/dl (7-24); CHLORIDE 111 mmol/L (98-107); CREATININE 1.02 mg/dL (0.55-1.02); POTASSIUM 4.1 mmol/L (3.5-5.1); SGOT/AST 13 IU/L (3-35); SGPT/ALT 15 U/L (12-78); SODIUM 144 mmol/L (136-145); TOTAL PROTEIN 7.3 gm/dL (6.4-8.2)
[2019-01-25 17:50] LABS: TROPONIN I < 0.015 ng/ml (<0.045)
[2019-01-25 18:24] VITALS: BP 147/57
[2019-01-25 18:45] VITALS: BP 130/48
--- NOTE | 2019-01-25 18:45 | NUR ---
A 63, admitted to , under the services of NICHOLAS Lemus DO with a diagnosis of SHORTNESS OF BREATH/CHEST HEAVINESS. Chief complaint is SHORTNESS OF BREATH IN [place] WITH CHEST HEAVINESS SINCE THEN, DIZZINESS AND SL. SOB W/ACTIVITY, CHEST REMAINS HEAVY. Patient arrived via stretcher from ER. Monitor applied. Initial assessment completed. Vital signs taken and recorded. NICHOLAS LEMUS DO notified of admission to the unit. Orders received. See assessment for past medical history, medications and allergies. Patient and/or family oriented to unit. [facility]. Clothing/patient valuable form completed. MAEVE GARCIA
[2019-01-25 20:00] VITALS: BP 131/57
--- NOTE | 2019-01-25 20:27 | NUR ---
PT REQUESTING FLU SHOT BE GIVEN IN THE MORNING.
--- NOTE | 2019-01-25 20:27 | NUR ---
PATIENT CALM AND COOPERATIVE WITH ASSESSMENT. DENIES ANY CHEST HEAVINESS AND STATES NO SOB AT REST ON ROOM AIR. HRR 80'S. WATER AND DIET DANYEL MYRTLE PROVIDED PER PT REQUEST. SEE SHIFT ASSESSMENT. BED IN LOWEST, LOCKED POS, CALL LIGHT WITHIN REACH.
[2019-01-26] VITALS: BP 135/58
[2019-01-26 06:19] LABS: BASO # 0.1 10*3/uL (0.0-0.1); BASO % 0.8 % (0.0-1.0); EOS # 0.1 10*3/uL (0.0-0.4); EOS % 2.1 % (1.0-4.0); HEMATOCRIT 34.8 % (37.0-47.0); HEMOGLOBIN 11.2 g/dl (12.0-16.0); LYMPH # 1.6 10*3/uL (1.3-4.4); MEAN CELL VOLUME 86.8 fl (81.0-99.0); MEAN CORPUSCULAR HGB 27.9 pg (27.0-31.0); MEAN CORPUSCULAR HGB CONC 32.2 g/dl (33.0-37.0); MEAN PLATELET VOLUME 9.1 fl (9.6-12.3); MONO # 0.4 10*3/uL (0.1-1.0); MONO % 5.6 % (3.0-9.0); NEUT # 4.1 10*3/uL (2.3-7.9); NEUT % 66.2 % (47.0-73.0); PLATELET COUNT AUTOMATED 412 10*3/uL (130-400); RED BLOOD COUNT 4.01 10*6/uL (4.10-5.10); RED CELL DISTRI WIDTH 14.9 % (0-14.5); WHITE BLOOD COUNT 6.2 10*3/uL (4.8-10.8)
[2019-01-26 06:40] LABS: BUN 13 mg/dl (7-24); CHLORIDE 107 mmol/L (98-107); CREATININE 0.72 mg/dL (0.55-1.02); PHOSPHOROUS 3.3 mg/dL (2.5-4.9); POTASSIUM 3.6 mmol/L (3.5-5.1); SODIUM 139 mmol/L (136-145)
--- NOTE | 2019-01-26 07:20 | NUR ---
PT RESTING IN BED. C/O HEADACHE, RATES PAIN 10 ON PAIN SCALE 0-10. MEDICATED WITH TYLENOL PO PER PRN ORDER, SEE EMAR. CALL LGIHT IN REACH. SEE SHIFT ASSESSMENT.
--- NOTE | 2019-01-26 07:47 | NUR ---
CALLED DR. AMADOR REGARDING PT HEADACHE AND REQUESTING IMITREX. ORDER TAKEN.
[2019-01-26 08:00] VITALS: BP 99/62
--- NOTE | 2019-01-26 09:10 | NUR ---
MEDICATED WITH IMITREX PO PER PRN ORDER, SEE EMAR. FOR C/O HEADACHE, STATES TYLENOL DIDN'T HELP. RATES PAIN 10 ON PAIN SCALE 0-10. CALL LIGHT IN REACH.
[2019-01-26 12:00] VITALS: BP 144/56
--- NOTE | 2019-01-26 12:43 | NUR ---
Apiculture Teacher in to talk to patient. Patient states lives at HOME with ALONE. There are FEW steps in the home. Physician: VERONICA [facility]acy: [facility] Home health services: NONE Patient's level of ADLs: INDEPENDENT Patient has working utilities: YES DME: NEBULIZER Follow-up physician's appointment after d/c: WILL BE MADE BY HOSPITALIST NURSE DIRECTOR ON DISCHARGE Does patient want to access PORTAL?: NO Discharge plan PT LIVES AT HOME ALONE AND IS INDEPENDENT IN HER CARE. DENIES SHE WILL HAVE ANY NEEDS ON DISCHARGE. PLAN IS TO RETURN HOME WHEN MEDICALLY STABLE. WILL CONTINUE TO FOLLOW. WILL HAVE A RIDE HOME PER PT. MARIA T RIVERA
[2019-01-26 16:00] VITALS: BP 112/53
--- NOTE | 2019-01-26 16:58 | NUR ---
Discharge instructions reviewed with patient/family. Patient receptive and verbalizes understanding. Follow-up care arranged. Written instructions given to patient/family. HEPLOCK REMOVED 2X2 APPLIED. MONITOR REMOVED. PT ESCORTED VIA WHEELCHAIR FOR DISCHARGE. JYOTHI LÓPEZ R
== END 2019-01-26 16:58 | disposition home or self-care (01) ==
LOC: ED 17:06 → EDHOLD 17:50 → 5E 17:55
PROVIDERS: Emergency Medicine; Student in an Organized Health Care Education/Training Program; ADMIT Emergency Medicine
DX: R07.89 Other chest pain (principal); R06.02 Shortness of breath; I25.10 Atherosclerotic heart disease of native coronary artery without angina pectoris; I11.0 Hypertensive heart disease with heart failure; I50.9 Heart failure, unspecified; F32.9 Major depressive disorder, single episode, unspecified; J44.9 Chronic obstructive pulmonary disease, unspecified; G51.0 Bell's palsy; G43.909 Migraine, unspecified, not intractable, without status migrainosus; E66.9 Obesity, unspecified; Z68.35 Body mass index [BMI] 35.0-35.9, adult

== ENCOUNTER 2019-03-17 14:15 | Emergency (ER) | payer OTHER, MEDICARE ==
[~2019-03-17] VITALS: Ht 170.1 cm; Wt 95.3 kg
[2019-03-17 14:16] VITALS: BP 101/46
[2019-03-17] MEDS ORDERED: IBU600 M1 PO (16:58)
== END 2019-03-17 17:04 | disposition home or self-care (01) ==
LOC: ED
DX: S60.222A Contusion of left hand, initial encounter (principal); S20.219A Contusion of unspecified front wall of thorax, initial encounter; M54.2 Cervicalgia; R51 Headache; Z91.013 Allergy to seafood; Z88.8 Allergy status to other drugs, medicaments and biological substances; Z79.01 Long term (current) use of anticoagulants; Z79.899 Other long term (current) drug therapy; Z79.82 Long term (current) use of aspirin; V89.2XXA Person injured in unspecified motor-vehicle accident, traffic, initial encounter; Y93.89 Activity, other specified; Y92.89 Other specified places as the place of occurrence of the external cause; Y99.8 Other external cause status

== ENCOUNTER 2019-03-24 14:25 | Emergency (ER) | payer MEDICARE, BC ==
[~2019-03-24] VITALS: Ht 170.1 cm; Wt 95.3 kg
[~2019-03-24 14:25] MED LIST changes: +IBU600 M1 PO
[2019-03-24 14:34] VITALS: BP 132/59
== END 2019-03-24 18:05 | disposition home or self-care (01) ==
LOC: ED 14:25
DX: S92.251A Displaced fracture of navicular [scaphoid] of right foot, initial encounter for closed fracture (principal); S93.401A Sprain of unspecified ligament of right ankle, initial encounter; S80.01XA Contusion of right knee, initial encounter; I25.10 Atherosclerotic heart disease of native coronary artery without angina pectoris; J44.9 Chronic obstructive pulmonary disease, unspecified; E11.9 Type 2 diabetes mellitus without complications; I11.0 Hypertensive heart disease with heart failure; I50.9 Heart failure, unspecified; G43.909 Migraine, unspecified, not intractable, without status migrainosus; E66.9 Obesity, unspecified; G89.29 Other chronic pain; Z91.013 Allergy to seafood; Z88.8 Allergy status to other drugs, medicaments and biological substances; Z79.899 Other long term (current) drug therapy; Z79.82 Long term (current) use of aspirin; Z68.30 Body mass index [BMI] 30.0-30.9, adult; Z90.49 Acquired absence of other specified parts of digestive tract; Z90.710 Acquired absence of both cervix and uterus; W01.0XXA Fall on same level from slipping, tripping and stumbling without subsequent striking against object, initial encounter; Y93.89 Activity, other specified; Y92.098 Other place in other non-institutional residence as the place of occurrence of the external cause; Y99.8 Other external cause status

== ENCOUNTER 2019-05-04 08:36 | Emergency (ER) | payer MEDICARE, BC ==
[~2019-05-04] VITALS: Ht 170.1 cm; Wt 95.3 kg
[2019-05-04 08:48] VITALS: BP 133/54
[2019-05-04 10:14] LABS: BASO % 0.6 % (0.0-1.0); EOS # 0.1 10*3/uL (0.0-0.4); EOS % 1.3 % (1.0-4.0); HEMATOCRIT 38.5 % (37.0-47.0); HEMOGLOBIN 12.5 g/dl (12.0-16.0); LYMPH # 1.4 10*3/uL (1.3-4.4); MEAN CELL VOLUME 85.9 fl (81.0-99.0); MEAN CORPUSCULAR HGB 27.9 pg (27.0-31.0); MEAN CORPUSCULAR HGB CONC 32.5 g/dl (33.0-37.0); MEAN PLATELET VOLUME 9.7 fl (9.6-12.3); MONO # 0.4 10*3/uL (0.1-1.0); MONO % 9.2 % (3.0-9.0); NEUT # 2.7 10*3/uL (2.3-7.9); NEUT % 57.7 % (47.0-73.0); PLATELET COUNT AUTOMATED 227 10*3/uL (130-400); RED BLOOD COUNT 4.48 10*6/uL (4.10-5.10); RED CELL DISTRI WIDTH 15.3 % (0-14.5); WHITE BLOOD COUNT 4.7 10*3/uL (4.8-10.8)
[2019-05-04 10:26] LABS: INTERNATIONAL NORM RATIO 0.9 (2.0-3.5)
[2019-05-04 10:30] LABS: ALBUMIN 3.5 gm/dl (3.1-4.5); ALKALINE PHOSPHATASE 73 U/L (45-117); BUN 17 mg/dl (7-24); CHLORIDE 111 mmol/L (98-107); LIPASE 201 U/L (73-393); POTASSIUM 4.1 mmol/L (3.5-5.1); SGOT/AST 11 IU/L (3-35); SGPT/ALT 19 U/L (12-78); SODIUM 142 mmol/L (136-145); TROPONIN I < 0.015 ng/ml (<0.045)
== END 2019-05-04 15:56 | disposition home or self-care (01) ==
LOC: ED 08:36
PROVIDERS: Emergency Medicine
DX: G43.909 Migraine, unspecified, not intractable, without status migrainosus (principal); K13.0 Diseases of lips; R20.2 Paresthesia of skin; I25.10 Atherosclerotic heart disease of native coronary artery without angina pectoris; I11.0 Hypertensive heart disease with heart failure; I50.9 Heart failure, unspecified; J44.9 Chronic obstructive pulmonary disease, unspecified; E11.9 Type 2 diabetes mellitus without complications; E66.9 Obesity, unspecified; Z88.8 Allergy status to other drugs, medicaments and biological substances; Z91.013 Allergy to seafood; Z79.899 Other long term (current) drug therapy; Z79.82 Long term (current) use of aspirin; Z68.30 Body mass index [BMI] 30.0-30.9, adult; Z86.73 Personal history of transient ischemic attack (TIA), and cerebral infarction without residual deficits; Z90.49 Acquired absence of other specified parts of digestive tract; Z90.710 Acquired absence of both cervix and uterus

== ENCOUNTER 2019-06-01 10:15 | Observation (INO) | payer MEDICARE, BC ==
[2019-06-01] VITALS (9 sets, daily range): BP systolic 113–143; BP diastolic 43–73
[~2019-06-01] VITALS: Ht 170.1 cm; Wt 92.7 kg
[2019-06-01 10:45] LABS: BASO % 0.7 % (0.0-1.0); EOS % 0.9 % (1.0-4.0); HEMATOCRIT 39.5 % (37.0-47.0); HEMOGLOBIN 13.1 g/dl (12.0-16.0); LYMPH # 1.1 10*3/uL (1.3-4.4); LYMPH % 24.3 % (27.0-41.0); MEAN CELL VOLUME 84.6 fl (81.0-99.0); MEAN CORPUSCULAR HGB 28.1 pg (27.0-31.0); MEAN CORPUSCULAR HGB CONC 33.2 g/dl (33.0-37.0); MEAN PLATELET VOLUME 9.9 fl (9.6-12.3); MONO # 0.2 10*3/uL (0.1-1.0); MONO % 4.8 % (3.0-9.0); NEUT % 69.1 % (47.0-73.0); PLATELET COUNT AUTOMATED 252 10*3/uL (130-400); RED BLOOD COUNT 4.67 10*6/uL (4.10-5.10); WHITE BLOOD COUNT 4.4 10*3/uL (4.8-10.8)
[2019-06-01 10:53] LABS: INTERNATIONAL NORM RATIO 0.9 (2.0-3.5)
[2019-06-01 11:09] LABS: ALBUMIN 3.4 gm/dl (3.1-4.5); BUN 14 mg/dl (7-24); CHLORIDE 108 mmol/L (98-107); CREATININE 0.85 mg/dL (0.55-1.02); POTASSIUM 3.7 mmol/L (3.5-5.1); SGOT/AST 10 IU/L (3-35); SGPT/ALT 17 U/L (12-78); SODIUM 141 mmol/L (136-145); TOTAL PROTEIN 7.1 gm/dL (6.4-8.2)
[2019-06-01 11:11] LABS: ALKALINE PHOSPHATASE 77 U/L (45-117)
[2019-06-01 11:18] LABS: TROPONIN I < 0.015 ng/ml (<0.045)
[2019-06-01] MEDS ORDERED: GLUCOPHAGE500 M1 PO (22:09)
[2019-06-02] VITALS: BP 130/70
[2019-06-02 04:15] VITALS: BP 120/62
[2019-06-02 06:36] LABS: BASO % 0.7 % (0.0-1.0); EOS # 0.1 10*3/uL (0.0-0.4); EOS % 1.8 % (1.0-4.0); HEMATOCRIT 38.8 % (37.0-47.0); HEMOGLOBIN 12.7 g/dl (12.0-16.0); LYMPH % 37.3 % (27.0-41.0); MEAN CELL VOLUME 84.2 fl (81.0-99.0); MEAN CORPUSCULAR HGB 27.5 pg (27.0-31.0); MEAN CORPUSCULAR HGB CONC 32.7 g/dl (33.0-37.0); MEAN PLATELET VOLUME 10.3 fl (9.6-12.3); MONO # 0.4 10*3/uL (0.1-1.0); NEUT # 2.8 10*3/uL (2.3-7.9); PLATELET COUNT AUTOMATED 258 10*3/uL (130-400); RED BLOOD COUNT 4.61 10*6/uL (4.10-5.10); RED CELL DISTRI WIDTH 15.1 % (0-14.5); WHITE BLOOD COUNT 5.5 10*3/uL (4.8-10.8)
[2019-06-02 06:53] LABS: ALBUMIN 3.3 gm/dl (3.1-4.5); ALKALINE PHOSPHATASE 70 U/L (45-117); BUN 13 mg/dl (7-24); CHLORIDE 107 mmol/L (98-107); PHOSPHOROUS 3.2 mg/dL (2.5-4.9); POTASSIUM 3.7 mmol/L (3.5-5.1); SGOT/AST 10 IU/L (3-35); SGPT/ALT 18 U/L (12-78); SODIUM 140 mmol/L (136-145); TOTAL PROTEIN 6.8 gm/dL (6.4-8.2)
[2019-06-02 09:00] VITALS: BP 132/60
[2019-06-02 12:00] VITALS: BP 137/65
[2019-06-02 16:00] VITALS: BP 141/76
== END 2019-06-02 18:30 | disposition home or self-care (01) ==
LOC: ED 10:15 → EDHOLD 14:44 → 5E 19:49
PROVIDERS: Emergency Medicine; Registered Nurse; ADMIT Internal Medicine
DX: R07.89 Other chest pain (principal); R06.02 Shortness of breath; I11.0 Hypertensive heart disease with heart failure; I50.32 Chronic diastolic (congestive) heart failure; E11.9 Type 2 diabetes mellitus without complications; F32.9 Major depressive disorder, single episode, unspecified; J44.9 Chronic obstructive pulmonary disease, unspecified; F41.9 Anxiety disorder, unspecified; E55.9 Vitamin D deficiency, unspecified

== ENCOUNTER 2019-06-11 23:17 | Emergency (ER) | payer MEDICARE, BC ==
[~2019-06-11] VITALS: Ht 170.1 cm; Wt 91.6 kg
[~2019-06-11 23:17] MED LIST changes: +GLUCOPHAGE500 M1 PO
[2019-06-11 23:57] LABS: BASO % 0.6 % (0.0-1.0); EOS # 0.1 10*3/uL (0.0-0.4); EOS % 1.6 % (1.0-4.0); HEMATOCRIT 37.8 % (37.0-47.0); HEMOGLOBIN 12.6 g/dl (12.0-16.0); LYMPH # 2.2 10*3/uL (1.3-4.4); LYMPH % 31.8 % (27.0-41.0); MEAN CELL VOLUME 84.9 fl (81.0-99.0); MEAN CORPUSCULAR HGB 28.3 pg (27.0-31.0); MEAN CORPUSCULAR HGB CONC 33.3 g/dl (33.0-37.0); MEAN PLATELET VOLUME 10.4 fl (9.6-12.3); MONO # 0.5 10*3/uL (0.1-1.0); MONO % 7.8 % (3.0-9.0); NEUT # 3.9 10*3/uL (2.3-7.9); NEUT % 58.1 % (47.0-73.0); PLATELET COUNT AUTOMATED 251 10*3/uL (130-400); RED BLOOD COUNT 4.45 10*6/uL (4.10-5.10); WHITE BLOOD COUNT 6.8 10*3/uL (4.8-10.8)
[2019-06-12 00:12] LABS: ACT PARTIAL THROMBO TIME 29.1 SECONDS (20.0-32.1); INTERNATIONAL NORM RATIO 0.9 (2.0-3.5)
[2019-06-12 00:14] LABS: ALBUMIN 3.4 gm/dl (3.1-4.5); ALKALINE PHOSPHATASE 89 U/L (45-117); BUN 15 mg/dl (7-24); CHLORIDE 109 mmol/L (98-107); CREATININE 0.86 mg/dL (0.55-1.02); POTASSIUM 3.9 mmol/L (3.5-5.1); SGOT/AST 10 IU/L (3-35); SGPT/ALT 17 U/L (12-78); SODIUM 141 mmol/L (136-145); TOTAL PROTEIN 6.9 gm/dL (6.4-8.2)
[2019-06-12 00:16] LABS: TROPONIN I < 0.015 ng/ml (<0.045)
[2019-06-12 02:00] VITALS: BP 116/50
== END 2019-06-12 08:48 | disposition home or self-care (01) ==
LOC: ED 23:17
PROVIDERS: Emergency Medicine
DX: R07.89 Other chest pain (principal); R06.02 Shortness of breath; I25.10 Atherosclerotic heart disease of native coronary artery without angina pectoris; I10 Essential (primary) hypertension; F41.9 Anxiety disorder, unspecified; F32.9 Major depressive disorder, single episode, unspecified; G43.909 Migraine, unspecified, not intractable, without status migrainosus; Z91.013 Allergy to seafood; Z88.8 Allergy status to other drugs, medicaments and biological substances; Z79.899 Other long term (current) drug therapy; Z79.82 Long term (current) use of aspirin; Z79.84 Long term (current) use of oral hypoglycemic drugs; Z90.710 Acquired absence of both cervix and uterus

== ENCOUNTER 2019-06-22 20:49 | Inpatient (IN) | payer MEDICARE, BC ==
[~2019-06-22] VITALS: Ht 170.1 cm; Wt 95.8 kg
[2019-06-22 20:52] VITALS: BP 133/42
[2019-06-22 21:43] LABS: BASO % 0.3 % (0.0-1.0); EOS % 0.4 % (1.0-4.0); HEMATOCRIT 35.2 % (37.0-47.0); HEMOGLOBIN 11.7 g/dl (12.0-16.0); LYMPH # 1.4 10*3/uL (1.3-4.4); LYMPH % 17.5 % (27.0-41.0); MEAN CORPUSCULAR HGB 28.3 pg (27.0-31.0); MEAN CORPUSCULAR HGB CONC 33.2 g/dl (33.0-37.0); MEAN PLATELET VOLUME 9.9 fl (9.6-12.3); MONO # 0.5 10*3/uL (0.1-1.0); MONO % 6.8 % (3.0-9.0); NEUT # 5.9 10*3/uL (2.3-7.9); NEUT % 74.5 % (47.0-73.0); PLATELET COUNT AUTOMATED 239 10*3/uL (130-400); RED BLOOD COUNT 4.14 10*6/uL (4.10-5.10); RED CELL DISTRI WIDTH 15.9 % (0-14.5)
[2019-06-22 21:59] VITALS: BP 137/71
[2019-06-22 22:02] LABS: ALKALINE PHOSPHATASE 107 U/L (45-117); BUN 13 mg/dl (7-24); CHLORIDE 109 mmol/L (98-107); CREATININE 0.95 mg/dL (0.55-1.02); SGOT/AST 12 IU/L (3-35); SGPT/ALT 21 U/L (12-78); SODIUM 143 mmol/L (136-145)
[2019-06-22 22:15] LABS: TROPONIN I < 0.015 ng/ml (<0.045)
[2019-06-22 22:41] VITALS: BP 124/43
[2019-06-23 03:18] LABS: BACTERIA 4+; BILIRUBIN NEGATIVE (NEGATIVE); BLOOD NEGATIVE (NEGATIVE); CLARITY SL CLOUDY (CLEAR); COLOR YELLOW (YELLOW); GLUCOSE NEGATIVE (NEGATIVE); KETONE NEGATIVE (NEGATIVE); LEUKO ESTERASE NEGATIVE (NEGATIVE); NITRITE POSITIVE (NEGATIVE); SPECIFIC GRAVITY 1.015 (1.005-1.030); UROBILINOGEN 0.2 E.U./dl (0.2-1.0)
[2019-06-23 04:30] VITALS: BP 128/65
[2019-06-23 04:35] VITALS: BP 128/65
[2019-06-23] MEDS ORDERED: IBUPROFEN600 MG PO (04:55)
[2019-06-23] MEDS ORDERED: KOMBIGLYZE XR1 EACH PO (05:00)
[2019-06-23] MEDS ORDERED: METFORMIN XR500 MG PO (05:01)
[2019-06-23 07:02] LABS: HEMATOCRIT 43.6 % (37.0-47.0); HEMOGLOBIN 14.1 g/dl (12.0-16.0); MEAN CORPUSCULAR HGB 28.1 pg (27.0-31.0); MEAN CORPUSCULAR HGB CONC 32.3 g/dl (33.0-37.0); MEAN PLATELET VOLUME 10.6 fl (9.6-12.3); PLATELET COUNT AUTOMATED 212 10*3/uL (130-400); RED BLOOD COUNT 5.01 10*6/uL (4.10-5.10); RED CELL DISTRI WIDTH 16.2 % (0-14.5); WHITE BLOOD COUNT 7.5 10*3/uL (4.8-10.8)
[2019-06-23 07:12] LABS: ACT PARTIAL THROMBO TIME 21.1 SECONDS (20.0-32.1); INTERNATIONAL NORM RATIO 0.9 (2.0-3.5)
[2019-06-23 07:17] LABS: ALBUMIN 3.5 gm/dl (3.1-4.5); ALKALINE PHOSPHATASE 91 U/L (45-117); BUN 12 mg/dl (7-24); CHLORIDE 109 mmol/L (98-107); CHOLESTEROL 153 mg/dL (<200); HDL CHOLESTEROL 85 mg/dl (40-60); LDL CHOLESTEROL 52 mg/dL (9-159); PHOSPHOROUS 3.6 mg/dL (2.5-4.9); POTASSIUM 4.3 mmol/L (3.5-5.1); SGOT/AST 9 IU/L (3-35); SGPT/ALT 21 U/L (12-78); SODIUM 141 mmol/L (136-145); TOTAL PROTEIN 7.7 gm/dL (6.4-8.2); TRIGLYCERIDES 82 mg/dl (<150); VLDL CHOLESTEROL 16 mg/dL (6-40)
[2019-06-23 07:24] LABS: PLATELET SUFFICIENCY NORMAL (NORMAL); TOTAL CELLS COUNTED 100 #CELLS
[2019-06-23 07:26] LABS: FREE T4 0.98 ng/dl (0.76-1.46)
[2019-06-23 08:00] VITALS: BP 130/66
[2019-06-23 08:08] LABS: VITAMIN D, 25-HYDROXY 36.7 ng/mL (30-100)
[2019-06-23] MEDS ORDERED: CIPRO500 MG PO (11:14)
[2019-06-23 12:00] VITALS: BP 123/54
== END 2019-06-23 13:21 | disposition home or self-care (01) | DRG 689 ==
LOC: ED 20:49 → 4E 06-23 04:05 → EDHOLD 06-23 04:05 → 4E 06-23 04:14
PROVIDERS: Emergency Medicine; Family Medicine; ADMIT Internal Medicine
DX: N39.0 Urinary tract infection, site not specified (principal); G93.41 Metabolic encephalopathy; E87.2 Acidosis; E44.1 Mild protein-calorie malnutrition; I50.30 Unspecified diastolic (congestive) heart failure; R07.89 Other chest pain; Z68.33 Body mass index [BMI] 33.0-33.9, adult; I25.10 Atherosclerotic heart disease of native coronary artery without angina pectoris; I11.0 Hypertensive heart disease with heart failure; F32.9 Major depressive disorder, single episode, unspecified; J44.9 Chronic obstructive pulmonary disease, unspecified; E66.9 Obesity, unspecified; F41.9 Anxiety disorder, unspecified; E55.9 Vitamin D deficiency, unspecified; G43.909 Migraine, unspecified, not intractable, without status migrainosus; E11.65 Type 2 diabetes mellitus with hyperglycemia; Z90.710 Acquired absence of both cervix and uterus; Z82.49 Family history of ischemic heart disease and other diseases of the circulatory system; Z82.3 Family history of stroke; Z88.8 Allergy status to other drugs, medicaments and biological substances; Z91.013 Allergy to seafood; Z79.82 Long term (current) use of aspirin; Z79.899 Other long term (current) drug therapy; Z86.73 Personal history of transient ischemic attack (TIA), and cerebral infarction without residual deficits

== ENCOUNTER 2019-07-10 12:00 | Emergency (ER) | payer MEDICARE, BC ==
[~2019-07-10 12:00] MED LIST changes: +METFORMIN XR500 MG PO
[2019-07-10 12:29] LABS: BASO % 0.2 % (0.0-1.0); EOS % 0.8 % (1.0-4.0); HEMATOCRIT 37.6 % (37.0-47.0); LYMPH # 1.1 10*3/uL (1.3-4.4); LYMPH % 21.3 % (27.0-41.0); MEAN CELL VOLUME 84.1 fl (81.0-99.0); MEAN CORPUSCULAR HGB 28.4 pg (27.0-31.0); MEAN CORPUSCULAR HGB CONC 33.8 g/dl (33.0-37.0); MEAN PLATELET VOLUME 9.7 fl (9.6-12.3); MONO # 0.3 10*3/uL (0.1-1.0); MONO % 5.4 % (3.0-9.0); NEUT # 3.6 10*3/uL (2.3-7.9); NEUT % 72.1 % (47.0-73.0); PLATELET COUNT AUTOMATED 233 10*3/uL (130-400); RED BLOOD COUNT 4.47 10*6/uL (4.10-5.10); RED CELL DISTRI WIDTH 15.7 % (0-14.5)
[2019-07-10 12:40] LABS: ALBUMIN 3.2 gm/dl (3.1-4.5); ALKALINE PHOSPHATASE 88 U/L (45-117); BUN 7 mg/dl (7-24); CHLORIDE 110 mmol/L (98-107); LIPASE 130 U/L (73-393); POTASSIUM 3.9 mmol/L (3.5-5.1); SGOT/AST 12 IU/L (3-35); SGPT/ALT 25 U/L (12-78); SODIUM 141 mmol/L (136-145); TOTAL PROTEIN 6.7 gm/dL (6.4-8.2)
[2019-07-10 12:41] LABS: ACT PARTIAL THROMBO TIME 27.4 SECONDS (20.0-32.1); INTERNATIONAL NORM RATIO 0.9 (2.0-3.5)
[2019-07-10 12:42] LABS: TROPONIN I < 0.015 ng/ml (<0.045)
[2019-07-10 17:06] VITALS: BP 117/47
[2019-07-10] MEDS ORDERED: PROTONIX40 MG PO (18:33)
== END 2019-07-10 18:48 | disposition home or self-care (01) ==
LOC: ED 12:00
PROVIDERS: Emergency Medicine
DX: K21.9 Gastro-esophageal reflux disease without esophagitis (principal); I11.0 Hypertensive heart disease with heart failure; I50.9 Heart failure, unspecified; E11.9 Type 2 diabetes mellitus without complications; F32.9 Major depressive disorder, single episode, unspecified; J45.909 Unspecified asthma, uncomplicated; G43.909 Migraine, unspecified, not intractable, without status migrainosus; Z88.8 Allergy status to other drugs, medicaments and biological substances; Z91.013 Allergy to seafood; Z79.899 Other long term (current) drug therapy; Z79.82 Long term (current) use of aspirin; Z90.49 Acquired absence of other specified parts of digestive tract; Z90.710 Acquired absence of both cervix and uterus

== ENCOUNTER 2019-09-04 13:23 | Emergency (ER) | payer MEDICARE, BC ==
[~2019-09-04] VITALS: Ht 170.1 cm; Wt 97.1 kg
[~2019-09-04 13:23] MED LIST changes: +PROTONIX40 MG PO
[2019-09-04 13:28] VITALS: BP 116/39
[2019-09-04 13:42] LABS: BASO % 0.4 % (0.0-1.0); EOS % 0.8 % (1.0-4.0); HEMATOCRIT 38.5 % (37.0-47.0); LYMPH # 1.1 10*3/uL (1.3-4.4); LYMPH % 21.9 % (27.0-41.0); MEAN CELL VOLUME 88.1 fl (81.0-99.0); MEAN CORPUSCULAR HGB 28.6 pg (27.0-31.0); MEAN CORPUSCULAR HGB CONC 32.5 g/dl (33.0-37.0); MEAN PLATELET VOLUME 9.6 fl (9.6-12.3); MONO # 0.4 10*3/uL (0.1-1.0); MONO % 7.7 % (3.0-9.0); NEUT # 3.6 10*3/uL (2.3-7.9); PLATELET COUNT AUTOMATED 270 10*3/uL (130-400); RED BLOOD COUNT 4.37 10*6/uL (4.10-5.10); RED CELL DISTRI WIDTH 14.8 % (0-14.5); WHITE BLOOD COUNT 5.2 10*3/uL (4.8-10.8)
[2019-09-04 13:53] LABS: ACT PARTIAL THROMBO TIME 27.9 SECONDS (20.0-32.1); INTERNATIONAL NORM RATIO 0.9 (2.0-3.5)
[2019-09-04 13:58] LABS: ALBUMIN 3.4 gm/dl (3.1-4.5); ALKALINE PHOSPHATASE 88 U/L (45-117); BUN 11 mg/dl (7-24); CHLORIDE 110 mmol/L (98-107); CREATININE 0.85 mg/dL (0.55-1.02); POTASSIUM 4.1 mmol/L (3.5-5.1); SGOT/AST 13 IU/L (3-35); SGPT/ALT 22 U/L (12-78); SODIUM 142 mmol/L (136-145)
[2019-09-04 14:03] LABS: TROPONIN I < 0.015 ng/ml (<0.045)
[2019-09-04] MEDS ORDERED: PROVENTIL HFA6.7 GM INH (16:11)
[2019-09-04] MEDS ORDERED: PREDNISONE50 MG PO (16:11)
== END 2019-09-04 16:15 | disposition home or self-care (01) ==
LOC: ED 13:23
PROVIDERS: Emergency Medicine
DX: J44.1 Chronic obstructive pulmonary disease with (acute) exacerbation (principal); I11.0 Hypertensive heart disease with heart failure; I50.9 Heart failure, unspecified; F32.9 Major depressive disorder, single episode, unspecified; E11.9 Type 2 diabetes mellitus without complications; G43.909 Migraine, unspecified, not intractable, without status migrainosus; F41.9 Anxiety disorder, unspecified; Z86.73 Personal history of transient ischemic attack (TIA), and cerebral infarction without residual deficits; Z88.8 Allergy status to other drugs, medicaments and biological substances; Z91.013 Allergy to seafood; Z79.899 Other long term (current) drug therapy; Z79.84 Long term (current) use of oral hypoglycemic drugs; Z90.710 Acquired absence of both cervix and uterus; Z90.49 Acquired absence of other specified parts of digestive tract

== ENCOUNTER 2019-10-09 11:59 | Observation (INO) | payer MEDICARE, BC ==
[~2019-10-09] VITALS: Ht 170.2 cm; Wt 96.7 kg
[~2019-10-09 11:59] MED LIST changes: +PROVENTIL HFA6.7 GM INH
[2019-10-09 12:19] VITALS: BP 134/62
[2019-10-09 12:39] LABS: BASO % 0.4 % (0.0-1.0); EOS # 0.2 10*3/uL (0.0-0.4); EOS % 2.8 % (1.0-4.0); HEMATOCRIT 39.2 % (37.0-47.0); LYMPH # 1.3 10*3/uL (1.3-4.4); LYMPH % 24.7 % (27.0-41.0); MEAN CELL VOLUME 87.7 fl (81.0-99.0); MEAN CORPUSCULAR HGB 28.6 pg (27.0-31.0); MEAN CORPUSCULAR HGB CONC 32.7 g/dl (33.0-37.0); MEAN PLATELET VOLUME 9.8 fl (9.6-12.3); MONO # 0.4 10*3/uL (0.1-1.0); NEUT # 3.4 10*3/uL (2.3-7.9); NEUT % 63.9 % (47.0-73.0); PLATELET COUNT AUTOMATED 291 10*3/uL (130-400); RED BLOOD COUNT 4.47 10*6/uL (4.10-5.10); RED CELL DISTRI WIDTH 15.4 % (0-14.5); WHITE BLOOD COUNT 5.4 10*3/uL (4.8-10.8)
[2019-10-09 12:51] LABS: ACT PARTIAL THROMBO TIME 27.5 SECONDS (20.0-32.1); INTERNATIONAL NORM RATIO 0.9 (2.0-3.5)
[2019-10-09 12:58] LABS: ALBUMIN 3.5 gm/dl (3.1-4.5); ALKALINE PHOSPHATASE 81 U/L (45-117); BUN 9 mg/dl (7-24); CHLORIDE 108 mmol/L (98-107); CREATININE 0.92 mg/dL (0.55-1.02); SGOT/AST 16 IU/L (3-35); SGPT/ALT 25 U/L (12-78); SODIUM 142 mmol/L (136-145); TOTAL PROTEIN 7.3 gm/dL (6.4-8.2)
[2019-10-09 13:02] LABS: TROPONIN I < 0.015 ng/ml (<0.045)
[2019-10-09 13:33] VITALS: BP 128/78
[2019-10-09 15:00] VITALS: BP 135/71
[2019-10-09 15:05] VITALS: BP 135/54
[2019-10-09 20:00] VITALS: BP 151/58
[2019-10-10] VITALS: BP 134/70
[2019-10-10 07:20] LABS: BASO % 0.4 % (0.0-1.0); EOS # 0.1 10*3/uL (0.0-0.4); EOS % 2.3 % (1.0-4.0); HEMATOCRIT 39.2 % (37.0-47.0); LYMPH # 1.6 10*3/uL (1.3-4.4); LYMPH % 30.5 % (27.0-41.0); MEAN CELL VOLUME 86.5 fl (81.0-99.0); MEAN CORPUSCULAR HGB 28.3 pg (27.0-31.0); MEAN CORPUSCULAR HGB CONC 32.7 g/dl (33.0-37.0); MEAN PLATELET VOLUME 9.5 fl (9.6-12.3); MONO # 0.5 10*3/uL (0.1-1.0); MONO % 9.1 % (3.0-9.0); NEUT % 57.3 % (47.0-73.0); PLATELET COUNT AUTOMATED 247 10*3/uL (130-400); RED BLOOD COUNT 4.53 10*6/uL (4.10-5.10); RED CELL DISTRI WIDTH 15.1 % (0-14.5); WHITE BLOOD COUNT 5.2 10*3/uL (4.8-10.8)
[2019-10-10 07:31] LABS: BUN 10 mg/dl (7-24); CHLORIDE 109 mmol/L (98-107); CREATININE 0.68 mg/dL (0.55-1.02); POTASSIUM 3.4 mmol/L (3.5-5.1); SODIUM 141 mmol/L (136-145)
[2019-10-10 08:00] VITALS: BP 120/54
== END 2019-10-10 12:51 | disposition home or self-care (01) ==
LOC: ED 11:59 → EDHOLD 14:43 → 4E 14:50
PROVIDERS: Internal Medicine; ADMIT Emergency Medicine
DX: R07.89 Other chest pain (principal); E11.65 Type 2 diabetes mellitus with hyperglycemia; E87.8 Other disorders of electrolyte and fluid balance, not elsewhere classified; J44.9 Chronic obstructive pulmonary disease, unspecified; F41.9 Anxiety disorder, unspecified; K21.9 Gastro-esophageal reflux disease without esophagitis; I50.9 Heart failure, unspecified; I11.0 Hypertensive heart disease with heart failure; F32.9 Major depressive disorder, single episode, unspecified; I25.10 Atherosclerotic heart disease of native coronary artery without angina pectoris; E66.9 Obesity, unspecified; E44.1 Mild protein-calorie malnutrition

== ENCOUNTER 2019-10-30 15:07 | Emergency (ER) | payer MEDICARE, BC ==
[~2019-10-30] VITALS: Ht 172.7 cm; Wt 108.9 kg
[2019-10-30 15:28] LABS: BASO % 0.4 % (0.0-1.0); EOS # 0.1 10*3/uL (0.0-0.4); HEMATOCRIT 36.9 % (37.0-47.0); LYMPH # 1.1 10*3/uL (1.3-4.4); LYMPH % 21.7 % (27.0-41.0); MEAN CELL VOLUME 84.8 fl (81.0-99.0); MEAN CORPUSCULAR HGB 28.5 pg (27.0-31.0); MEAN CORPUSCULAR HGB CONC 33.6 g/dl (33.0-37.0); MEAN PLATELET VOLUME 9.7 fl (9.6-12.3); MONO # 0.3 10*3/uL (0.1-1.0); MONO % 5.7 % (3.0-9.0); NEUT # 3.6 10*3/uL (2.3-7.9); PLATELET COUNT AUTOMATED 256 10*3/uL (130-400); RED BLOOD COUNT 4.35 10*6/uL (4.10-5.10); WHITE BLOOD COUNT 5.1 10*3/uL (4.8-10.8)
[2019-10-30 15:38] LABS: ACT PARTIAL THROMBO TIME 27.5 SECONDS (20.0-32.1); INTERNATIONAL NORM RATIO 0.9 (2.0-3.5)
[2019-10-30 15:44] LABS: ALBUMIN 3.3 gm/dl (3.1-4.5); ALKALINE PHOSPHATASE 80 U/L (45-117); BUN 9 mg/dl (7-24); CHLORIDE 109 mmol/L (98-107); CREATININE 0.78 mg/dL (0.55-1.02); POTASSIUM 3.7 mmol/L (3.5-5.1); SGOT/AST 12 IU/L (3-35); SGPT/ALT 24 U/L (12-78); SODIUM 140 mmol/L (136-145); TOTAL PROTEIN 6.6 gm/dL (6.4-8.2)
[2019-10-30 15:48] LABS: TROPONIN I < 0.015 ng/ml (<0.045)
[2019-10-30 16:42] VITALS: BP 142/74
== END 2019-10-30 17:28 | disposition home or self-care (01) ==
LOC: ED 15:07
PROVIDERS: Emergency Medicine
DX: M94.0 Chondrocostal junction syndrome [Tietze] (principal); Z88.8 Allergy status to other drugs, medicaments and biological substances; Z91.013 Allergy to seafood; Z79.899 Other long term (current) drug therapy; Z79.82 Long term (current) use of aspirin

== ENCOUNTER 2020-01-18 12:05 | Emergency (ER) | payer MEDICARE, BC ==
[~2020-01-18] VITALS: Wt 96.2 kg
[2020-01-18 12:15] VITALS: BP 130/48
[2020-01-18 12:45] LABS: BASO % 0.2 % (0.0-1.0); EOS # 0.1 10*3/uL (0.0-0.4); HEMATOCRIT 38.8 % (37.0-47.0); LYMPH # 0.9 10*3/uL (1.3-4.4); MEAN CORPUSCULAR HGB 27.9 pg (27.0-31.0); MEAN CORPUSCULAR HGB CONC 33.2 g/dl (33.0-37.0); MEAN PLATELET VOLUME 9.8 fl (9.6-12.3); MONO # 0.3 10*3/uL (0.1-1.0); MONO % 5.4 % (3.0-9.0); NEUT # 3.7 10*3/uL (2.3-7.9); NEUT % 74.4 % (47.0-73.0); PLATELET COUNT AUTOMATED 286 10*3/uL (130-400); RED BLOOD COUNT 4.62 10*6/uL (4.10-5.10); RED CELL DISTRI WIDTH 14.6 % (0-14.5)
[2020-01-18 12:58] LABS: ACT PARTIAL THROMBO TIME 29.9 SECONDS (20.0-32.1); INTERNATIONAL NORM RATIO 0.9 (2.0-3.5)
[2020-01-18 13:01] LABS: ALBUMIN 3.4 gm/dl (3.1-4.5); ALKALINE PHOSPHATASE 79 U/L (45-117); BUN 9 mg/dl (7-24); CHLORIDE 111 mmol/L (98-107); CREATININE 0.74 mg/dL (0.55-1.02); POTASSIUM 3.7 mmol/L (3.5-5.1); SGOT/AST 9 IU/L (3-35); SGPT/ALT 17 U/L (12-78); SODIUM 144 mmol/L (136-145); TOTAL PROTEIN 7.1 gm/dL (6.4-8.2)
[2020-01-18 13:06] LABS: TROPONIN I < 0.015 ng/ml (<0.045)
[2020-01-18] MEDS ORDERED: TYLENOL325 M1 PO (13:14)
[2020-01-18] MEDS ORDERED: NAPROXEN250 MG PO (13:14)
== END 2020-01-18 13:41 | disposition home or self-care (01) ==
LOC: ED 12:05
PROVIDERS: Emergency Medicine
DX: R07.89 Other chest pain (principal); R06.02 Shortness of breath; I25.10 Atherosclerotic heart disease of native coronary artery without angina pectoris; J44.9 Chronic obstructive pulmonary disease, unspecified; K21.9 Gastro-esophageal reflux disease without esophagitis; I50.9 Heart failure, unspecified; I11.0 Hypertensive heart disease with heart failure; Z86.73 Personal history of transient ischemic attack (TIA), and cerebral infarction without residual deficits; E11.9 Type 2 diabetes mellitus without complications; G43.909 Migraine, unspecified, not intractable, without status migrainosus; E66.9 Obesity, unspecified; Z88.8 Allergy status to other drugs, medicaments and biological substances; Z91.013 Allergy to seafood; Z79.899 Other long term (current) drug therapy; Z79.82 Long term (current) use of aspirin

== ENCOUNTER → 2020-02-24 | Outpatient (CLI) | payer MEDICARE, BC ==
[~2020-02-24] MED LIST changes: +NAPROXEN250 MG PO; +TYLENOL325 M1 PO
== END ==
LOC: COVID19 14:49
PROVIDERS: ATTEND Internal Medicine Critical Care Medicine
DX: Z20.828 Contact with and (suspected) exposure to other viral communicable diseases (principal)

== ENCOUNTER 2020-03-21 13:50 | Emergency (ER) | payer MEDICARE, BC ==
[~2020-03-21] VITALS: Ht 170.1 cm; Wt 96.2 kg
[2020-03-21 14:52] LABS: BASO % 0.5 % (0.0-1.0); EOS # 0.1 10*3/uL (0.0-0.4); EOS % 2.4 % (1.0-4.0); HEMATOCRIT 37.5 % (37.0-47.0); LYMPH # 1.2 10*3/uL (1.3-4.4); LYMPH % 21.7 % (27.0-41.0); MEAN CELL VOLUME 85.4 fl (81.0-99.0); MEAN CORPUSCULAR HGB 27.6 pg (27.0-31.0); MEAN CORPUSCULAR HGB CONC 32.3 g/dl (33.0-37.0); MEAN PLATELET VOLUME 9.8 fl (9.6-12.3); MONO # 0.4 10*3/uL (0.1-1.0); MONO % 7.8 % (3.0-9.0); NEUT # 3.7 10*3/uL (2.3-7.9); NEUT % 67.2 % (47.0-73.0); PLATELET COUNT AUTOMATED 242 10*3/uL (130-400); RED BLOOD COUNT 4.39 10*6/uL (4.10-5.10); RED CELL DISTRI WIDTH 14.9 % (0-14.5); WHITE BLOOD COUNT 5.5 10*3/uL (4.8-10.8)
[2020-03-21 15:09] LABS: ALBUMIN 3.2 gm/dl (3.1-4.5); ALKALINE PHOSPHATASE 82 U/L (45-117); BUN 13 mg/dl (7-24); CHLORIDE 111 mmol/L (98-107); CREATININE 0.71 mg/dL (0.55-1.02); POTASSIUM 3.9 mmol/L (3.5-5.1); SGOT/AST 12 IU/L (3-35); SGPT/ALT 18 U/L (12-78); SODIUM 145 mmol/L (136-145); TOTAL PROTEIN 6.5 gm/dL (6.4-8.2)
[2020-03-21 15:12] LABS: TROPONIN I < 0.015 ng/ml (<0.045)
[2020-03-21] MEDS ORDERED: ZITHROMAX250 MG PO (16:50)
[2020-03-21 17:13] VITALS: BP 131/55
== END 2020-03-21 17:39 | disposition home or self-care (01) ==
LOC: ED 13:50
PROVIDERS: Nurse Practitioner
DX: J18.9 Pneumonia, unspecified organism (principal); R29.810 Facial weakness; K21.9 Gastro-esophageal reflux disease without esophagitis; I11.0 Hypertensive heart disease with heart failure; I50.9 Heart failure, unspecified; E11.9 Type 2 diabetes mellitus without complications; F32.9 Major depressive disorder, single episode, unspecified; J44.9 Chronic obstructive pulmonary disease, unspecified; G43.909 Migraine, unspecified, not intractable, without status migrainosus; F41.9 Anxiety disorder, unspecified; Z88.8 Allergy status to other drugs, medicaments and biological substances; Z91.013 Allergy to seafood; Z79.899 Other long term (current) drug therapy; Z79.82 Long term (current) use of aspirin; Z90.49 Acquired absence of other specified parts of digestive tract; Z98.61 Coronary angioplasty status; Z90.711 Acquired absence of uterus with remaining cervical stump; Z90.89 Acquired absence of other organs

== ENCOUNTER 2020-04-01 12:26 | Emergency (ER) | payer MEDICARE, BC ==
[~2020-04-01] VITALS: Ht 170.1 cm; Wt 97.1 kg
[2020-04-01 12:44] VITALS: BP 141/60
[2020-04-01 13:20] LABS: BASO % 0.5 % (0.0-1.0); EOS # 0.1 10*3/uL (0.0-0.4); EOS % 2.3 % (1.0-4.0); HEMATOCRIT 37.1 % (37.0-47.0); LYMPH # 1.1 10*3/uL (1.3-4.4); LYMPH % 24.8 % (27.0-41.0); MEAN CELL VOLUME 84.3 fl (81.0-99.0); MEAN CORPUSCULAR HGB 27.5 pg (27.0-31.0); MEAN CORPUSCULAR HGB CONC 32.6 g/dl (33.0-37.0); MEAN PLATELET VOLUME 9.5 fl (9.6-12.3); MONO # 0.4 10*3/uL (0.1-1.0); MONO % 8.3 % (3.0-9.0); NEUT # 2.8 10*3/uL (2.3-7.9); NEUT % 63.9 % (47.0-73.0); PLATELET COUNT AUTOMATED 246 10*3/uL (130-400); RED CELL DISTRI WIDTH 15.2 % (0-14.5); WHITE BLOOD COUNT 4.3 10*3/uL (4.8-10.8)
[2020-04-01 13:35] LABS: ALBUMIN 3.4 gm/dl (3.1-4.5); ALKALINE PHOSPHATASE 79 U/L (45-117); BUN 11 mg/dl (7-24); CHLORIDE 111 mmol/L (98-107); CREATININE 0.76 mg/dL (0.55-1.02); POTASSIUM 3.5 mmol/L (3.5-5.1); SGOT/AST 10 IU/L (3-35); SGPT/ALT 15 U/L (12-78); SODIUM 144 mmol/L (136-145); TOTAL PROTEIN 6.8 gm/dL (6.4-8.2)
[2020-04-01] MEDS ORDERED: PREDNISONE50 MG PO (15:16)
== END 2020-04-01 15:33 | disposition home or self-care (01) ==
LOC: ED 12:26
PROVIDERS: Internal Medicine
DX: J18.9 Pneumonia, unspecified organism (principal); Z91.013 Allergy to seafood; Z88.8 Allergy status to other drugs, medicaments and biological substances; Z79.899 Other long term (current) drug therapy; Z79.82 Long term (current) use of aspirin; Z88.6 Allergy status to analgesic agent

== ENCOUNTER 2020-10-04 16:54 | Inpatient (IN) | payer MEDICARE, BC ==
[~2020-10-04] VITALS: Ht 165.1 cm; Wt 97.3 kg
[2020-10-04 17:02] VITALS: BP 130/63
[2020-10-04 17:20] LABS: BASO % 0.4 % (0.0-1.0); EOS # 0.1 10*3/uL (0.0-0.4); EOS % 1.9 % (1.0-4.0); HEMATOCRIT 39.1 % (37.0-47.0); LYMPH # 1.5 10*3/uL (1.3-4.4); LYMPH % 29.8 % (27.0-41.0); MEAN CELL VOLUME 83.9 fl (81.0-99.0); MEAN CORPUSCULAR HGB 27.7 pg (27.0-31.0); MEAN PLATELET VOLUME 9.9 fl (9.6-12.3); MONO # 0.4 10*3/uL (0.1-1.0); MONO % 6.8 % (3.0-9.0); NEUT # 3.1 10*3/uL (2.3-7.9); NEUT % 60.9 % (47.0-73.0); PLATELET COUNT AUTOMATED 245 10*3/uL (130-400); RED BLOOD COUNT 4.66 10*6/uL (4.10-5.10); RED CELL DISTRI WIDTH 14.8 % (0-14.5); WHITE BLOOD COUNT 5.2 10*3/uL (4.8-10.8)
[2020-10-04 17:38] LABS: ALBUMIN 3.4 gm/dl (3.1-4.5); ALKALINE PHOSPHATASE 85 U/L (45-117); BUN 11 mg/dl (7-24); CHLORIDE 106 mmol/L (98-107); CREATININE 0.75 mg/dL (0.55-1.02); POTASSIUM 3.7 mmol/L (3.5-5.1); SGOT/AST 9 IU/L (3-35); SGPT/ALT 18 U/L (12-78); SODIUM 139 mmol/L (136-145)
[2020-10-04 17:40] LABS: TROPONIN I < 0.015 ng/ml (<0.045)
[2020-10-04 18:42] VITALS: BP 133/54
[2020-10-04 21:41] VITALS: BP 125/93
[2020-10-04 22:27] VITALS: BP 125/84
[2020-10-04 22:35] VITALS: BP 125/41
[2020-10-05] VITALS: BP 125/41
[2020-10-05 06:35] LABS: BASO % 0.6 % (0.0-1.0); EOS # 0.1 10*3/uL (0.0-0.4); EOS % 2.7 % (1.0-4.0); HEMATOCRIT 39.9 % (37.0-47.0); LYMPH # 1.9 10*3/uL (1.3-4.4); LYMPH % 39.2 % (27.0-41.0); MEAN CELL VOLUME 86.9 fl (81.0-99.0); MEAN CORPUSCULAR HGB 27.5 pg (27.0-31.0); MEAN CORPUSCULAR HGB CONC 31.6 g/dl (33.0-37.0); MEAN PLATELET VOLUME 10.1 fl (9.6-12.3); MONO # 0.5 10*3/uL (0.1-1.0); MONO % 11.1 % (3.0-9.0); NEUT # 2.2 10*3/uL (2.3-7.9); NEUT % 46.2 % (47.0-73.0); PLATELET COUNT AUTOMATED 220 10*3/uL (130-400); RED BLOOD COUNT 4.59 10*6/uL (4.10-5.10); RED CELL DISTRI WIDTH 15.3 % (0-14.5); WHITE BLOOD COUNT 4.9 10*3/uL (4.8-10.8)
[2020-10-05 06:52] LABS: ALBUMIN 3.1 gm/dl (3.1-4.5); BUN 14 mg/dl (7-24); CHLORIDE 112 mmol/L (98-107); CHOLESTEROL 167 mg/dL (<200); CREATININE 0.72 mg/dL (0.55-1.02); SGOT/AST 12 IU/L (3-35); SGPT/ALT 17 U/L (12-78); SODIUM 142 mmol/L (136-145); TRIGLYCERIDES 135 mg/dl (<150)
[2020-10-05 06:58] LABS: ALKALINE PHOSPHATASE 75 U/L (45-117); FREE T4 0.86 ng/dl (0.76-1.46); LDL CHOLESTEROL 91 mg/dL (9-159); TOTAL PROTEIN 6.5 gm/dL (6.4-8.2)
[2020-10-05 07:41] LABS: VITAMIN D, 25-HYDROXY 42.4 ng/mL (30-100)
[2020-10-05 08:00] VITALS: BP 130/68
[2020-10-05 12:00] VITALS: BP 129/55
[2020-10-05 16:00] VITALS: BP 153/63
[2020-10-05] MEDS ORDERED: PREDNISONE10 MG PO (16:26)
[2020-10-05] MEDS ORDERED: DOXYCYCLINE100 M3 PO (16:26)
== END 2020-10-05 20:52 | disposition home or self-care (01) | DRG 203 ==
LOC: ED 16:54 → EDHOLD 18:35 → 5E 22:03
PROVIDERS: Emergency Medicine; Internal Medicine; ADMIT Internal Medicine; ATTEND Internal Medicine
PROC: 4A02XM4 Measurement of Cardiac Total Activity, External Approach (ICD-10-PCS; principal; 2020-10-05)
PROC: 3E073KZ Introduction of Other Diagnostic Substance into Coronary Artery, Percutaneous Approach (ICD-10-PCS; 2020-10-05)
DX: J40 Bronchitis, not specified as acute or chronic (principal); I25.10 Atherosclerotic heart disease of native coronary artery without angina pectoris; E11.9 Type 2 diabetes mellitus without complications; F32.9 Major depressive disorder, single episode, unspecified; F41.9 Anxiety disorder, unspecified; K21.9 Gastro-esophageal reflux disease without esophagitis; Z90.710 Acquired absence of both cervix and uterus; E11.65 Type 2 diabetes mellitus with hyperglycemia; J44.9 Chronic obstructive pulmonary disease, unspecified; I50.9 Heart failure, unspecified; Z90.49 Acquired absence of other specified parts of digestive tract; Z82.3 Family history of stroke; Z88.8 Allergy status to other drugs, medicaments and biological substances; Z91.013 Allergy to seafood; Z79.82 Long term (current) use of aspirin; Z79.899 Other long term (current) drug therapy; Z79.51 Long term (current) use of inhaled steroids; Z68.33 Body mass index [BMI] 33.0-33.9, adult; R07.9 Chest pain, unspecified

== ENCOUNTER 2020-10-08 13:43 | Emergency (ER) | payer MEDICARE, BC ==
[~2020-10-08] VITALS: Ht 170.1 cm; Wt 102.6 kg
[~2020-10-08 13:43] MED LIST changes: +DOXYCYCLINE100 M3 PO
[2020-10-08 13:57] VITALS: BP 143/70
[2020-10-08 14:10] LABS: BASO % 0.2 % (0.0-1.0); HEMATOCRIT 38.8 % (37.0-47.0); LYMPH # 1.6 10*3/uL (1.3-4.4); LYMPH % 17.3 % (27.0-41.0); MEAN CELL VOLUME 83.8 fl (81.0-99.0); MEAN CORPUSCULAR HGB 27.4 pg (27.0-31.0); MEAN CORPUSCULAR HGB CONC 32.7 g/dl (33.0-37.0); MEAN PLATELET VOLUME 10.1 fl (9.6-12.3); MONO # 0.6 10*3/uL (0.1-1.0); MONO % 5.8 % (3.0-9.0); NEUT # 7.2 10*3/uL (2.3-7.9); NEUT % 76.2 % (47.0-73.0); PLATELET COUNT AUTOMATED 267 10*3/uL (130-400); RED BLOOD COUNT 4.63 10*6/uL (4.10-5.10); RED CELL DISTRI WIDTH 14.7 % (0-14.5); WHITE BLOOD COUNT 9.4 10*3/uL (4.8-10.8)
[2020-10-08 14:27] LABS: ALBUMIN 3.3 gm/dl (3.1-4.5); ALKALINE PHOSPHATASE 87 U/L (45-117); BUN 11 mg/dl (7-24); CHLORIDE 110 mmol/L (98-107); CREATININE 0.69 mg/dL (0.55-1.02); POTASSIUM 3.7 mmol/L (3.5-5.1); SGOT/AST 8 IU/L (3-35); SGPT/ALT 16 U/L (12-78); SODIUM 138 mmol/L (136-145); TOTAL PROTEIN 6.8 gm/dL (6.4-8.2)
[2020-10-08 14:32] LABS: TROPONIN I < 0.015 ng/ml (<0.045)
== END 2020-10-08 17:38 | disposition home or self-care (01) ==
LOC: ED 13:43
PROVIDERS: Emergency Medicine
DX: R07.89 Other chest pain (principal); G51.0 Bell's palsy; J44.9 Chronic obstructive pulmonary disease, unspecified; E11.9 Type 2 diabetes mellitus without complications; F32.9 Major depressive disorder, single episode, unspecified; I25.10 Atherosclerotic heart disease of native coronary artery without angina pectoris; K21.9 Gastro-esophageal reflux disease without esophagitis; I50.9 Heart failure, unspecified; G43.909 Migraine, unspecified, not intractable, without status migrainosus; Z88.8 Allergy status to other drugs, medicaments and biological substances; Z91.013 Allergy to seafood; Z79.899 Other long term (current) drug therapy; Z79.2 Long term (current) use of antibiotics; Z79.82 Long term (current) use of aspirin; Z86.73 Personal history of transient ischemic attack (TIA), and cerebral infarction without residual deficits; Z90.49 Acquired absence of other specified parts of digestive tract; Z98.61 Coronary angioplasty status; Z90.711 Acquired absence of uterus with remaining cervical stump; Z90.89 Acquired absence of other organs

== ENCOUNTER 2020-10-24 18:28 | Emergency (ER) | payer MEDICARE, BC ==
[~2020-10-24] VITALS: Ht 170.1 cm; Wt 96.6 kg
[2020-10-25 02:49] VITALS: BP 137/63
== END 2020-10-25 05:19 | disposition home or self-care (01) ==
LOC: ED 18:28
DX: R51.9 Headache, unspecified (principal); Z53.21 Procedure and treatment not carried out due to patient leaving prior to being seen by health care provider; Z86.73 Personal history of transient ischemic attack (TIA), and cerebral infarction without residual deficits; Z88.8 Allergy status to other drugs, medicaments and biological substances; Z91.013 Allergy to seafood; Z79.899 Other long term (current) drug therapy; Z79.2 Long term (current) use of antibiotics; Z79.82 Long term (current) use of aspirin; Z90.49 Acquired absence of other specified parts of digestive tract; Z98.61 Coronary angioplasty status; Z90.711 Acquired absence of uterus with remaining cervical stump; Z90.89 Acquired absence of other organs

== ENCOUNTER → 2021-01-17 | Outpatient (CLI) | payer MEDICARE, BC | END | disposition home or self-care (01) | LOC: COVID19 16:32 | PROVIDERS: ATTEND Internal Medicine | DX: Z11.52 Encounter for screening for COVID-19 (principal) ==

== ENCOUNTER 2021-02-15 10:50 | Emergency (ER) | payer MEDICARE, BC ==
[2021-02-17] MEDS ORDERED: DECADRON6 M1 PO (10:58)
== END 2021-02-15 11:42 | disposition left against medical advice (07) ==
LOC: ED 10:50
DX: Z53.21 Procedure and treatment not carried out due to patient leaving prior to being seen by health care provider (principal)

== ENCOUNTER 2021-02-20 09:28 | Emergency (ER) | payer MEDICARE, BC ==
[~2021-02-20 09:28] MED LIST changes: +DECADRON6 M1 PO
[2021-02-20 09:31] VITALS: BP 135/47
[2021-02-20 09:55] LABS: BASO % 0.2 % (0.0-1.0); EOS % 0.4 % (1.0-4.0); HEMATOCRIT 41.4 % (37.0-47.0); LYMPH # 1.6 10*3/uL (1.3-4.4); LYMPH % 30.9 % (27.0-41.0); MEAN CELL VOLUME 86.8 fl (81.0-99.0); MEAN CORPUSCULAR HGB 28.1 pg (27.0-31.0); MEAN CORPUSCULAR HGB CONC 32.4 g/dl (33.0-37.0); MEAN PLATELET VOLUME 9.9 fl (9.6-12.3); MONO # 0.4 10*3/uL (0.1-1.0); NEUT # 3.2 10*3/uL (2.3-7.9); NEUT % 60.3 % (47.0-73.0); PLATELET COUNT AUTOMATED 232 10*3/uL (130-400); RED BLOOD COUNT 4.77 10*6/uL (4.10-5.10); RED CELL DISTRI WIDTH 14.4 % (0-14.5); WHITE BLOOD COUNT 5.3 10*3/uL (4.8-10.8)
[2021-02-20 10:11] LABS: ALBUMIN 3.1 gm/dl (3.1-4.5); ALKALINE PHOSPHATASE 93 U/L (45-117); BUN 14 mg/dl (7-24); CHLORIDE 108 mmol/L (98-107); CREATININE 0.66 mg/dL (0.55-1.02); POTASSIUM 3.7 mmol/L (3.5-5.1); SGOT/AST 17 IU/L (3-35); SGPT/ALT 25 U/L (12-78); SODIUM 139 mmol/L (136-145); TOTAL PROTEIN 7.1 gm/dL (6.4-8.2)
== END 2021-02-20 15:49 | disposition home or self-care (01) ==
LOC: ED 09:28
PROVIDERS: Emergency Medicine
DX: U07.1 COVID-19 (principal); J12.82 Pneumonia due to coronavirus disease 2019; Z88.8 Allergy status to other drugs, medicaments and biological substances; Z91.013 Allergy to seafood; Z79.899 Other long term (current) drug therapy; Z79.82 Long term (current) use of aspirin

== ENCOUNTER 2021-08-15 10:49 | Emergency (ER) | payer MEDICARE, BC ==
[~2021-08-15] VITALS: Ht 165.1 cm; Wt 108.9 kg
[2021-08-15 11:20] VITALS: BP 129/54
[2021-08-15 11:21] LABS: BASO % 0.5 % (0.0-1.0); EOS # 0.1 10*3/uL (0.0-0.4); EOS % 2.6 % (1.0-4.0); HEMATOCRIT 38.7 % (37.0-47.0); LYMPH # 1.2 10*3/uL (1.3-4.4); LYMPH % 28.4 % (27.0-41.0); MEAN CELL VOLUME 84.3 fl (81.0-99.0); MEAN CORPUSCULAR HGB 28.5 pg (27.0-31.0); MEAN CORPUSCULAR HGB CONC 33.9 g/dl (33.0-37.0); MEAN PLATELET VOLUME 10.1 fl (9.6-12.3); MONO # 0.3 10*3/uL (0.1-1.0); MONO % 7.7 % (3.0-9.0); NEUT # 2.6 10*3/uL (2.3-7.9); NEUT % 60.8 % (47.0-73.0); PLATELET COUNT AUTOMATED 263 10*3/uL (130-400); RED BLOOD COUNT 4.59 10*6/uL (4.10-5.10); WHITE BLOOD COUNT 4.3 10*3/uL (4.8-10.8)
[2021-08-15 11:36] LABS: ACT PARTIAL THROMBO TIME 27.5 SECONDS (20.0-32.1); INTERNATIONAL NORM RATIO 0.9 (2.0-3.5)
[2021-08-15 11:42] LABS: ALKALINE PHOSPHATASE 88 U/L (45-117); BUN 13 mg/dl (7-24); CHLORIDE 108 mmol/L (98-107); CREATININE 0.77 mg/dL (0.55-1.02); SGOT/AST 14 IU/L (3-35); SGPT/ALT 19 U/L (12-78); SODIUM 139 mmol/L (136-145); TOTAL PROTEIN 6.8 gm/dL (6.4-8.2)
[2021-08-15] MEDS ORDERED: VIBRA-TAB100 MG PO (17:28)
[2021-08-15] MEDS ORDERED: PREDNISONE50 MG PO (17:28)
== END 2021-08-15 18:20 | disposition home or self-care (01) ==
LOC: ED 10:49
PROVIDERS: Emergency Medicine
DX: J44.9 Chronic obstructive pulmonary disease, unspecified (principal); Z91.030 Bee allergy status; Z88.8 Allergy status to other drugs, medicaments and biological substances; Z79.899 Other long term (current) drug therapy; Z79.82 Long term (current) use of aspirin; Z90.49 Acquired absence of other specified parts of digestive tract; Z90.89 Acquired absence of other organs; Z90.710 Acquired absence of both cervix and uterus; Z98.890 Other specified postprocedural states

== ENCOUNTER 2021-09-27 10:46 | Inpatient (IN) | payer MEDICARE, BC ==
[~2021-09-27] VITALS: Ht 170.1 cm; Wt 96.0 kg
[2021-09-27 10:46] VITALS: BP 183/90
[~2021-09-27 10:46] MED LIST changes: +VIBRA-TAB100 MG PO
[2021-09-27 11:07] LABS: BASO % 0.9 % (0.0-1.0); EOS # 0.1 10*3/uL (0.0-0.4); EOS % 1.3 % (1.0-4.0); HEMATOCRIT 39.7 % (37.0-47.0); LYMPH # 1.2 10*3/uL (1.3-4.4); LYMPH % 26.5 % (27.0-41.0); MEAN CORPUSCULAR HGB 28.5 pg (27.0-31.0); MEAN CORPUSCULAR HGB CONC 33.5 g/dl (33.0-37.0); MEAN PLATELET VOLUME 9.8 fl (9.6-12.3); MONO # 0.3 10*3/uL (0.1-1.0); MONO % 7.2 % (3.0-9.0); NEUT # 2.9 10*3/uL (2.3-7.9); NEUT % 63.9 % (47.0-73.0); PLATELET COUNT AUTOMATED 261 10*3/uL (130-400); RED BLOOD COUNT 4.67 10*6/uL (4.10-5.10); RED CELL DISTRI WIDTH 14.9 % (0-14.5); WHITE BLOOD COUNT 4.6 10*3/uL (4.8-10.8)
[2021-09-27 11:17] LABS: ACT PARTIAL THROMBO TIME 29.1 SECONDS (20.0-32.1); INTERNATIONAL NORM RATIO 0.9 (2.0-3.5)
[2021-09-27 11:26] LABS: BUN 9 mg/dl (7-24); CHLORIDE 115 mmol/L (98-107); LIPASE 113 U/L (73-393); POTASSIUM 3.6 mmol/L (3.5-5.1); SGOT/AST 16 IU/L (3-35); SGPT/ALT 17 U/L (12-78); SODIUM 140 mmol/L (136-145)
[2021-09-27 11:27] LABS: ALKALINE PHOSPHATASE 85 U/L (45-117); TOTAL PROTEIN 7.1 gm/dL (6.4-8.2)
[2021-09-27 12:00] VITALS: BP 147/68
[2021-09-27 15:00] VITALS: BP 148/66
[2021-09-27 16:00] VITALS: BP 152/70
[2021-09-27 16:03] LABS: URINE AMPHETAMINES < 1000 (1000ng/ml); URINE BARBITURATES < 200 (200ng/ml); URINE BENZODIAZEPINES > 200 (200ng/ml); URINE CANNABINOIDS (THC) < 50 (50ng/ml); URINE COCAINE < 300 (300ng/ml); URINE METHADONE < 300 (300ng/ml); URINE OPIATES < 300 (300ng/ml)
[2021-09-27 16:06] LABS: URINE PHENCYCLIDINE < 25 (25ng/ml)
[2021-09-27 20:00] VITALS: BP 158/66
[2021-09-28] VITALS: BP 128/59
[2021-09-28 04:00] VITALS: BP 127/59
[2021-09-28 06:12] LABS: BASO % 0.7 % (0.0-1.0); EOS # 0.2 10*3/uL (0.0-0.4); EOS % 3.2 % (1.0-4.0); HEMATOCRIT 40.4 % (37.0-47.0); LYMPH # 1.8 10*3/uL (1.3-4.4); LYMPH % 32.2 % (27.0-41.0); MEAN CELL VOLUME 87.6 fl (81.0-99.0); MEAN CORPUSCULAR HGB 28.2 pg (27.0-31.0); MEAN CORPUSCULAR HGB CONC 32.2 g/dl (33.0-37.0); MEAN PLATELET VOLUME 9.8 fl (9.6-12.3); MONO # 0.5 10*3/uL (0.1-1.0); MONO % 9.1 % (3.0-9.0); NEUT # 3.1 10*3/uL (2.3-7.9); NEUT % 54.6 % (47.0-73.0); PLATELET COUNT AUTOMATED 247 10*3/uL (130-400); RED BLOOD COUNT 4.61 10*6/uL (4.10-5.10); RED CELL DISTRI WIDTH 15.3 % (0-14.5); WHITE BLOOD COUNT 5.6 10*3/uL (4.8-10.8)
[2021-09-28 06:30] LABS: BUN 9 mg/dl (7-24); CHLORIDE 113 mmol/L (98-107); CHOLESTEROL 187 mg/dL (<200); CREATININE 0.64 mg/dL (0.55-1.02); POTASSIUM 3.9 mmol/L (3.5-5.1); SGOT/AST 14 IU/L (3-35); SGPT/ALT 16 U/L (12-78); SODIUM 146 mmol/L (136-145); TOTAL PROTEIN 6.9 gm/dL (6.4-8.2)
[2021-09-28 06:36] LABS: ALKALINE PHOSPHATASE 78 U/L (45-117); FREE T4 0.97 ng/dl (0.76-1.46); LDL CHOLESTEROL 112 mg/dL (9-159); TRIGLYCERIDES 111 mg/dl (<150)
[2021-09-28 08:00] VITALS: BP 122/50
[2021-09-28 08:26] LABS: VITAMIN D, 25-HYDROXY 32.3 ng/mL (30-100)
[2021-09-28 12:00] VITALS: BP 124/68
== END 2021-09-28 17:07 | disposition home or self-care (01) | DRG 391 ==
LOC: ED 10:46 → EDHOLD 12:45 → 5E 13:43
PROVIDERS: Emergency Medicine; Internal Medicine; ADMIT Internal Medicine; ATTEND Internal Medicine
PROC: 4A02XM4 Measurement of Cardiac Total Activity, External Approach (ICD-10-PCS; principal; 2021-09-28)
PROC: 3E033HZ Introduction of Radioactive Substance into Peripheral Vein, Percutaneous Approach (ICD-10-PCS; 2021-09-28)
DX: K21.9 Gastro-esophageal reflux disease without esophagitis (principal); G93.41 Metabolic encephalopathy; I25.10 Atherosclerotic heart disease of native coronary artery without angina pectoris; I50.9 Heart failure, unspecified; J44.9 Chronic obstructive pulmonary disease, unspecified; F32.9 Major depressive disorder, single episode, unspecified; E11.65 Type 2 diabetes mellitus with hyperglycemia; F32.A Depression, unspecified; I11.0 Hypertensive heart disease with heart failure; D72.819 Decreased white blood cell count, unspecified; Z88.8 Allergy status to other drugs, medicaments and biological substances; Z91.013 Allergy to seafood; Z90.49 Acquired absence of other specified parts of digestive tract; Z90.710 Acquired absence of both cervix and uterus; Z82.3 Family history of stroke; Z82.49 Family history of ischemic heart disease and other diseases of the circulatory system

== ENCOUNTER 2021-12-01 13:26 | Emergency (ER) | payer MEDICARE, BC ==
[~2021-12-01] VITALS: Wt 98.4 kg
[2021-12-01 13:37] VITALS: BP 153/59
[2021-12-01 14:57] LABS: BASO % 0.6 % (0.0-1.0); EOS # 0.1 10*3/uL (0.0-0.4); EOS % 1.7 % (1.0-4.0); HEMATOCRIT 39.1 % (37.0-47.0); LYMPH # 1.4 10*3/uL (1.3-4.4); LYMPH % 30.2 % (27.0-41.0); MEAN CELL VOLUME 86.7 fl (81.0-99.0); MEAN CORPUSCULAR HGB 28.8 pg (27.0-31.0); MEAN CORPUSCULAR HGB CONC 33.2 g/dl (33.0-37.0); MEAN PLATELET VOLUME 9.8 fl (9.6-12.3); MONO # 0.4 10*3/uL (0.1-1.0); MONO % 9.1 % (3.0-9.0); NEUT # 2.7 10*3/uL (2.3-7.9); PLATELET COUNT AUTOMATED 258 10*3/uL (130-400); RED BLOOD COUNT 4.51 10*6/uL (4.10-5.10); RED CELL DISTRI WIDTH 14.7 % (0-14.5); WHITE BLOOD COUNT 4.7 10*3/uL (4.8-10.8)
[2021-12-01 15:09] LABS: ACT PARTIAL THROMBO TIME 28.5 SECONDS (20.0-32.1)
[2021-12-01 15:17] LABS: ALKALINE PHOSPHATASE 86 U/L (45-117); BUN 14 mg/dl (7-24); CHLORIDE 111 mmol/L (98-107); CREATININE 0.74 mg/dL (0.55-1.02); LIPASE 128 U/L (73-393); POTASSIUM 4.2 mmol/L (3.5-5.1); SGOT/AST 9 IU/L (3-35); SGPT/ALT 17 U/L (12-78); SODIUM 142 mmol/L (136-145); TOTAL PROTEIN 6.6 gm/dL (6.4-8.2)
[2021-12-01 16:21] LABS: BILIRUBIN Negative (Negative); BLOOD Negative (Negative); CLARITY Clear (Clear); COLOR Yellow (Yellow); GLUCOSE Negative (Negative); KETONE Negative (Negative); LEUKO ESTERASE Negative (Negative); NITRITE Negative (Negative); PH 5.5 (4.5-8.0); SPECIFIC GRAVITY 1.015 (1.001-1.030); UROBILINOGEN 0.2 E.U./dl (0.0-1.0)
[2021-12-01 16:42] LABS: EPITHELIAL CELLS 21-30; RBC 0-2 rbc/hpf (0-2); WBC 0-2 wbc/hpf (0-5)
[2021-12-01 16:43] LABS: BACTERIA 2+
== END 2021-12-01 16:40 | disposition home or self-care (01) ==
LOC: ED 13:26
PROVIDERS: Emergency Medicine
DX: R53.1 Weakness (principal); R42 Dizziness and giddiness; R10.9 Unspecified abdominal pain; Z91.013 Allergy to seafood; Z88.8 Allergy status to other drugs, medicaments and biological substances; Z79.899 Other long term (current) drug therapy; Z79.82 Long term (current) use of aspirin; Z90.49 Acquired absence of other specified parts of digestive tract; Z90.89 Acquired absence of other organs; Z98.890 Other specified postprocedural states

== ENCOUNTER 2021-12-19 12:48 | Emergency (ER) | payer MEDICARE, BC ==
[~2021-12-19] VITALS: Wt 98.4 kg
[2021-12-19 12:51] VITALS: BP 124/67
== END 2021-12-19 15:31 | disposition home or self-care (01) ==
LOC: ED 12:48
DX: J45.909 Unspecified asthma, uncomplicated (principal); R06.00 Dyspnea, unspecified; Z90.49 Acquired absence of other specified parts of digestive tract; Z79.82 Long term (current) use of aspirin

== ENCOUNTER 2022-01-29 10:26 | Emergency (ER) | payer MEDICARE, BC ==
[~2022-01-29] VITALS: Wt 99.8 kg
[2022-01-29 10:27] VITALS: BP 142/68
[2022-01-29 11:05] LABS: BASO % 0.7 % (0.0-1.0); EOS # 0.1 10*3/uL (0.0-0.4); EOS % 1.3 % (1.0-4.0); HEMATOCRIT 40.4 % (37.0-47.0); LYMPH # 1.2 10*3/uL (1.3-4.4); MEAN CELL VOLUME 84.5 fl (81.0-99.0); MEAN CORPUSCULAR HGB 28.5 pg (27.0-31.0); MEAN CORPUSCULAR HGB CONC 33.7 g/dl (33.0-37.0); MEAN PLATELET VOLUME 9.6 fl (9.6-12.3); MONO # 0.3 10*3/uL (0.1-1.0); MONO % 6.8 % (3.0-9.0); NEUT # 2.9 10*3/uL (2.3-7.9); PLATELET COUNT AUTOMATED 268 10*3/uL (130-400); RED BLOOD COUNT 4.78 10*6/uL (4.10-5.10); RED CELL DISTRI WIDTH 15.2 % (0-14.5); WHITE BLOOD COUNT 4.6 10*3/uL (4.8-10.8)
[2022-01-29 11:16] LABS: ACT PARTIAL THROMBO TIME 29.5 SECONDS (20.0-32.1); INTERNATIONAL NORM RATIO 0.9 (2.0-3.5)
[2022-01-29 11:37] LABS: ALKALINE PHOSPHATASE 90 U/L (45-117); BUN 13 mg/dl (7-24); CHLORIDE 109 mmol/L (98-107); CREATININE 0.75 mg/dL (0.55-1.02); POTASSIUM 3.6 mmol/L (3.5-5.1); SGOT/AST 12 IU/L (3-35); SGPT/ALT 18 U/L (12-78); SODIUM 140 mmol/L (136-145); TOTAL PROTEIN 7.1 gm/dL (6.4-8.2)
== END 2022-01-29 16:00 | disposition home or self-care (01) ==
LOC: ED 10:26
PROVIDERS: Emergency Medicine
DX: J06.9 Acute upper respiratory infection, unspecified (principal); I25.10 Atherosclerotic heart disease of native coronary artery without angina pectoris; J44.9 Chronic obstructive pulmonary disease, unspecified; F32.A Depression, unspecified; E11.9 Type 2 diabetes mellitus without complications; K21.9 Gastro-esophageal reflux disease without esophagitis; I10 Essential (primary) hypertension; Z88.8 Allergy status to other drugs, medicaments and biological substances; Z91.013 Allergy to seafood; Z79.899 Other long term (current) drug therapy; Z79.82 Long term (current) use of aspirin; Z90.49 Acquired absence of other specified parts of digestive tract; Z90.89 Acquired absence of other organs; Z90.710 Acquired absence of both cervix and uterus

== ENCOUNTER 2022-02-03 07:51 | Emergency (ER) | payer MEDICARE, BC ==
[~2022-02-03] VITALS: Ht 170.1 cm; Wt 95.7 kg
[2022-02-03 08:02] VITALS: BP 147/60
[2022-02-03] MEDS ORDERED: LIDODERM1 EACH T (10:12)
== END 2022-02-03 10:22 | disposition home or self-care (01) ==
LOC: ED 07:51
DX: S80.02XA Contusion of left knee, initial encounter (principal); S80.01XA Contusion of right knee, initial encounter; Z88.8 Allergy status to other drugs, medicaments and biological substances; Z79.899 Other long term (current) drug therapy; Z79.82 Long term (current) use of aspirin; Z98.890 Other specified postprocedural states; Z90.49 Acquired absence of other specified parts of digestive tract; Z90.710 Acquired absence of both cervix and uterus; Z90.89 Acquired absence of other organs; W18.39XA Other fall on same level, initial encounter; Y93.89 Activity, other specified; Y92.89 Other specified places as the place of occurrence of the external cause; Y99.8 Other external cause status

== ENCOUNTER → 2022-07-03 | Outpatient (CLI) | payer MEDICARE, BC ==
[~2022-07-03] MED LIST changes: +LIDODERM1 EACH T
== END | disposition home or self-care (01) ==
LOC: LAB 10:05
PROVIDERS: ATTEND Nurse Practitioner
DX: R06.09 Other forms of dyspnea (principal); R51.9 Headache, unspecified; Z20.822 Contact with and (suspected) exposure to COVID-19

== ENCOUNTER 2022-07-05 12:31 | Emergency (ER) | payer MEDICARE, BC ==
[2022-07-05 12:38] VITALS: BP 126/47
[2022-07-05 13:11] LABS: BASO % 0.6 % (0.0-1.0); EOS # 0.1 10*3/uL (0.0-0.4); HEMATOCRIT 41.2 % (37.0-47.0); LYMPH # 1.5 10*3/uL (1.3-4.4); LYMPH % 28.1 % (27.0-41.0); MEAN CELL VOLUME 86.2 fl (81.0-99.0); MEAN CORPUSCULAR HGB 28.9 pg (27.0-31.0); MEAN CORPUSCULAR HGB CONC 33.5 g/dl (33.0-37.0); MEAN PLATELET VOLUME 9.9 fl (9.6-12.3); MONO # 0.4 10*3/uL (0.1-1.0); MONO % 6.5 % (3.0-9.0); NEUT # 3.4 10*3/uL (2.3-7.9); NEUT % 62.6 % (47.0-73.0); PLATELET COUNT AUTOMATED 262 10*3/uL (130-400); RED BLOOD COUNT 4.78 10*6/uL (4.10-5.10); WHITE BLOOD COUNT 5.4 10*3/uL (4.8-10.8)
[2022-07-05 13:26] LABS: ACT PARTIAL THROMBO TIME 28.2 SECONDS (20.0-32.1); INTERNATIONAL NORM RATIO 0.9 (2.0-3.5)
[2022-07-05 13:29] LABS: ALKALINE PHOSPHATASE 79 U/L (46-116); BUN 10 mg/dl (9-23); CHLORIDE 109 mmol/L (98-107); LIPASE 35 U/L (12-53); POTASSIUM 3.8 mmol/L (3.4-5.1); SGPT/ALT 9 U/L (10-49); TOTAL PROTEIN 6.6 gm/dL (6.0-8.0)
[2022-07-05] MEDS ORDERED: ZITHROMAX250 MG PO (16:10)
[2022-07-05] MEDS ORDERED: PREDNISONE50 MG PO (16:10)
== END 2022-07-05 16:11 | disposition home or self-care (01) ==
LOC: ED 12:31
PROVIDERS: Emergency Medicine
DX: J20.9 Acute bronchitis, unspecified (principal); J44.9 Chronic obstructive pulmonary disease, unspecified; Z88.8 Allergy status to other drugs, medicaments and biological substances; Z91.013 Allergy to seafood; Z79.899 Other long term (current) drug therapy; Z79.82 Long term (current) use of aspirin; Z90.49 Acquired absence of other specified parts of digestive tract; Z90.89 Acquired absence of other organs; Z90.710 Acquired absence of both cervix and uterus

== ENCOUNTER → 2022-08-20 | Outpatient (CLI) | payer MEDICARE, BC ==
[~2022-08-20] MED LIST changes: +AMOX-CLAV 875-1 EACH PO; +ESCITALOPRAM OX10 MG PO; +ESOMEPRAZOLE MA40 M1 PO; +LEVOFLOXACIN750 M2 PO; +NIFEDIPINE ER30 M1 PO; +ZIPRASIDONE HCL60 M1 PO
[2022-08-20 16:49] LABS: BASO % 0.5 % (0.0-1.0); EOS # 0.1 10*3/uL (0.0-0.4); EOS % 1.9 % (1.0-4.0); HEMATOCRIT 40.3 % (37.0-47.0); LYMPH # 2.1 10*3/uL (1.3-4.4); LYMPH % 34.8 % (27.0-41.0); MEAN CORPUSCULAR HGB 28.5 pg (27.0-31.0); MEAN PLATELET VOLUME 9.6 fl (9.6-12.3); MONO # 0.5 10*3/uL (0.1-1.0); MONO % 8.4 % (3.0-9.0); NEUT # 3.2 10*3/uL (2.3-7.9); NEUT % 54.1 % (47.0-73.0); PLATELET COUNT AUTOMATED 263 10*3/uL (130-400); WHITE BLOOD COUNT 5.9 10*3/uL (4.8-10.8)
[2022-08-20 17:24] LABS: ALKALINE PHOSPHATASE 95 U/L (46-116); BUN 8 mg/dl (9-23); CHLORIDE 107 mmol/L (98-107); POTASSIUM 3.8 mmol/L (3.4-5.1); SGPT/ALT 14 U/L (10-49); TOTAL PROTEIN 6.8 gm/dL (6.0-8.0)
== END | disposition home or self-care (01) ==
LOC: LAB 15:58
PROVIDERS: ATTEND Nurse Practitioner Family
DX: E11.9 Type 2 diabetes mellitus without complications (principal); R11.0 Nausea; Z86.19 Personal history of other infectious and parasitic diseases; R10.30 Lower abdominal pain, unspecified

== ENCOUNTER 2022-08-21 10:57 | Emergency (ER) | payer MEDICARE, BC ==
[~2022-08-21] VITALS: Ht 170.1 cm; Wt 93.0 kg
[~2022-08-21 10:57] MED LIST changes: -LEVOFLOXACIN750 M2 PO
[2022-08-21 11:24] VITALS: BP 142/61
[2022-08-23] MEDS ORDERED: LEVOFLOXACIN750 M2 PO (20:48)
== END 2022-08-21 13:11 | disposition home or self-care (01) ==
LOC: ED 10:57
DX: R51.9 Headache, unspecified (principal); J45.909 Unspecified asthma, uncomplicated; Z88.8 Allergy status to other drugs, medicaments and biological substances; Z91.013 Allergy to seafood; Z79.2 Long term (current) use of antibiotics; Z79.899 Other long term (current) drug therapy; Z90.49 Acquired absence of other specified parts of digestive tract; Z90.711 Acquired absence of uterus with remaining cervical stump; Z90.89 Acquired absence of other organs

== ENCOUNTER 2022-08-25 07:03 | Emergency (ER) | payer MEDICARE, BC ==
[~2022-08-25] VITALS: Wt 96.8 kg
[~2022-08-25 07:03] MED LIST changes: +LEVOFLOXACIN750 M2 PO
[2022-08-25 07:27] VITALS: BP 147/76
[2022-08-25 08:01] LABS: BASO % 0.6 % (0.0-1.0); EOS # 0.1 10*3/uL (0.0-0.4); EOS % 2.3 % (1.0-4.0); HEMATOCRIT 39.4 % (37.0-47.0); LYMPH # 1.4 10*3/uL (1.3-4.4); MEAN CELL VOLUME 85.7 fl (81.0-99.0); MEAN CORPUSCULAR HGB 28.9 pg (27.0-31.0); MEAN CORPUSCULAR HGB CONC 33.8 g/dl (33.0-37.0); MEAN PLATELET VOLUME 9.6 fl (9.6-12.3); MONO # 0.4 10*3/uL (0.1-1.0); MONO % 7.3 % (3.0-9.0); NEUT % 61.4 % (47.0-73.0); PLATELET COUNT AUTOMATED 236 10*3/uL (130-400); RED CELL DISTRI WIDTH 14.6 % (0-14.5); WHITE BLOOD COUNT 4.8 10*3/uL (4.8-10.8)
[2022-08-25 08:24] LABS: ALKALINE PHOSPHATASE 79 U/L (46-116); BUN 12 mg/dl (9-23); CHLORIDE 104 mmol/L (98-107); LIPASE 38 U/L (12-53); POTASSIUM 3.8 mmol/L (3.4-5.1); SGPT/ALT 12 U/L (10-49); TOTAL PROTEIN 6.5 gm/dL (6.0-8.0)
[2022-08-25] MEDS ORDERED: PANTOPRAZOLE SO20 MG PO (08:30)
[2022-08-25] MEDS ORDERED: PEPCID20 MG PO (08:44)
== END 2022-08-25 09:00 | disposition home or self-care (01) ==
LOC: ED 07:03
PROVIDERS: Emergency Medicine
DX: K29.70 Gastritis, unspecified, without bleeding (principal); Z88.8 Allergy status to other drugs, medicaments and biological substances; Z91.013 Allergy to seafood; Z79.2 Long term (current) use of antibiotics; Z79.899 Other long term (current) drug therapy; Z90.49 Acquired absence of other specified parts of digestive tract; Z90.711 Acquired absence of uterus with remaining cervical stump; Z90.89 Acquired absence of other organs

== ENCOUNTER → 2022-11-07 | Outpatient (CLI) | payer MEDICARE, BC ==
[~2022-11-07] MED LIST changes: +PANTOPRAZOLE SO20 MG PO; +PEPCID20 MG PO
== END | disposition home or self-care (01) ==
LOC: RAD 09:21
PROVIDERS: ATTEND Nurse Practitioner Family
DX: J44.9 Chronic obstructive pulmonary disease, unspecified (principal); R05.8 Other specified cough

== ENCOUNTER 2023-07-05 11:03 | Emergency (ER) | payer MEDICARE, BC ==
[~2023-07-05] VITALS: Ht 170.1 cm; Wt 87.5 kg
[~2023-07-05 11:03] MED LIST changes: +ALPRAZOLAM0.5 M3 PO; +ZIPRASIDONE HCL20 M1 PO
[2023-07-05 11:25] VITALS: BP 139/57
[2023-07-05] MEDS ORDERED: Acetaminophen/Oxycodone 5 MG/325 MG TABLET PO ONE (11:35)
[2023-07-05] MEDS ORDERED: DIAZEPAM 5 MG TAB PO ONE (11:35)
[2023-07-05] MEDS ORDERED: TRAMADOL HCL50 MG PO (13:05)
== END 2023-07-05 13:46 | disposition home or self-care (01) ==
LOC: ED 11:03
DX: M62.830 Muscle spasm of back (principal); M54.2 Cervicalgia; I11.0 Hypertensive heart disease with heart failure; I50.9 Heart failure, unspecified; E11.9 Type 2 diabetes mellitus without complications; J45.909 Unspecified asthma, uncomplicated; F32.A Depression, unspecified; G43.909 Migraine, unspecified, not intractable, without status migrainosus; Z86.73 Personal history of transient ischemic attack (TIA), and cerebral infarction without residual deficits; F41.9 Anxiety disorder, unspecified; Z88.8 Allergy status to other drugs, medicaments and biological substances; Z91.013 Allergy to seafood; Z90.49 Acquired absence of other specified parts of digestive tract; Z95.5 Presence of coronary angioplasty implant and graft; Z90.710 Acquired absence of both cervix and uterus; Z90.89 Acquired absence of other organs; Z98.890 Other specified postprocedural states